=== PATIENT | female | born 1995 | race Caucasian/White ===

== ENCOUNTER 2017-04-14 23:48 | Emergency (ER) | payer SELFPAY ==
--- NOTE | 2017-04-14 23:55 | ER Document Report ---
ED General - General Stated Complaint: POSSIBLE OVERDOSE Time Seen by Provider: 04/14/17 23:50 Notes: Patient is a 21-year-old female without past medical history who presents after attempting suicide. Patient took an unknown quantity of NyQuil solution and tablets as well as cetirizine. She states that this was an attempt to kill herself. Family became concerned after she texted them to state that they needed her to watch her dogs. Denies a history of prior suicide attempts. States she is remorseful that her suicide attempt was unsuccessful. She denies any acute medical concerns. States that the reason for her suicide attempt is "I did not know how to be happy so I wanted to just end it". Patient denies any prior psychiatric diagnoses. - Related Data Allergies/Adverse Reactions: No Known Allergies Allergy (Verified 05/10/13 15:03) Past Medical History - General Information source: Patient - Social History Smoking Status: Never Smoker Frequency of alcohol use: Occasional Drug Abuse: None Lives with: Friend Family History: Reviewed & Not Pertinent Past Surgical History: Reports: Hx Orthopedic Surgery - knee - Immunizations Hx Diphtheria, Pertussis, Tetanus Vaccination: Yes Review of Systems - Review of Systems Notes: Constitutional: Negative for fever. HENT: Negative for sore throat. Eyes: Negative for visual changes. Cardiovascular: Negative for chest pain. Respiratory: Negative for shortness of breath. Gastrointestinal: Negative for abdominal pain, vomiting or diarrhea. Genitourinary: Negative for dysuria. Musculoskeletal: Negative for back pain. Skin: Negative for rash. Neurological: Negative for headaches, weakness or numbness. 10 point ROS negative except as marked above and in HPI. Physical Exam - Vital signs Vitals: BP 121/88 H 04/15/17 00:08 Interpretation: Tachycardic Notes: PHYSICAL EXAMINATION: GENERAL: Appears somewhat somnolent but wakes easily, GCS 15 HEAD: Atraumatic, normocephalic. EYES: Pupils equal round and reactive to light, extraocular movements intact, sclera anicteric, conjunctiva are normal. ENT: nares patent, oropharynx clear without exudates. Moist mucous membranes. NECK: Normal range of motion, supple without lymphadenopathy LUNGS: Breath sounds clear to auscultation bilaterally and equal. No wheezes rales or rhonchi. HEART: Regular rate and rhythm without murmurs ABDOMEN: Soft, nontender, normoactive bowel sounds. No guarding, no rebound. No masses appreciated. EXTREMITIES: Normal range of motion, no pitting or edema. No cyanosis. NEUROLOGICAL: No focal neurological deficits. Moves all extremities spontaneously and on command. PSYCH: Depressed mood and affect, poor eye contact. SKIN: Warm, Dry, normal turgor, no rashes or lesions noted. Course - Re-evaluation Re-evalutation: 04/14/17 23:54 Patient presents with a polysubstance overdose, most concern only apparently up to 8000 mg or more of acetaminophen with an additional unknown ingestion of cetirizine. The Tylenol was mostly in the form of NyQuil. Large concern at this point would be for liver toxicity in the setting of a large ingestion of acetaminophen. Will obtain initial level and then a repeat level 4 hours and then. Patient will placed on ekg monitor, standard psychiatric screening labs will be obtained. An IVC will be filed as patient did have a suicide note , admits that this is a an explicit suicide attempt this is a significant attempt. 04/15/17 02:58 Initial Tylenol level is only 34. Repeat level will be drawn 4 hours from initial. Patient is awake, conversing with family. No distress. - Vital Signs Vital signs: Temp Pulse Resp BP Pulse Ox 99.1 F 108 H 17 119/78 97 04/15/17 00:37 04/15/17 00:37 04/15/17 02:01 04/15/17 02:01 04/15/17 02:01 - Laboratory Result Diagrams: 04/15/17 00:16 04/15/17 00:16 Laboratory results interpreted by me: 04/15/17 04/15/17 00:16 00:16 WBC 14.1 H Absolute Neutrophils 9.8 H Chloride 109 H Carbon Dioxide 19 L Salicylates < 1.0 L Acetaminophen 34 H - EKG Interpretation by Me Additional EKG results interpreted by me: 04/15/17 02:59 Sinus tachycardia. Rate 106. No ST elevations or depressions. QTC is 441. Discharge - Discharge Clinical Impression: Suicide attempt by adequate means Qualifiers: Encounter type: initial encounter Qualified Code(s): X83.8XXA - Intentional self-harm by other specified means, initial encounter Polysubstance overdose Qualifiers: Encounter type: initial encounter Injury intent: intentional self-harm Qualified Code(s): T50.902A - Poisoning by unspecified drugs, medicaments and biological substances, intentional self-harm, initial encounter Condition: Stable Disposition: PSYCH HOSP/UNIT
[2017-04-15 00:29] LABS: ABSOLUTE BASOPHILS # (AUTO) 0.1 10^3/uL (0.0-0.2); ABSOLUTE EOSINOPHILS # (AUTO) 0.1 10^3/uL (0.0-0.6); ABSOLUTE LYMPHOCYTES (AUTO) 3.1 10^3/uL (0.5-4.7); ABSOLUTE MONOCYTES (AUTO) 1.1 10^3/uL (0.1-1.4); ABSOLUTE NEUT (AUTO) 9.8 10^3/uL (1.7-8.2); BASOPHILS % (AUTO) 0.4 % (0-2); EOSINOPHILS % (AUTO) 0.4 % (0-6); HEMATOCRIT 42.6 % (36.0-47.0); HEMOGLOBIN 14.6 g/dL (12.0-15.5); HGB HCT DIFFERENCE 1.2; LYMPHOCYTES % (AUTO) 22.2 % (13-45); MEAN CORPUSCULAR HEMOGLOBIN 31.8 pg (27.0-33.4); MEAN CORPUSCULAR HGB CONC 34.3 g/dL (32.0-36.0); MEAN CORPUSCULAR VOLUME 93 fl (80-97); MONOCYTES % (AUTO) 7.6 % (3-13); RED BLOOD COUNT 4.59 10^6/uL (3.72-5.28); RED CELL DISTRIBUTION WIDTH 12.3 % (11.5-14.0); SEGMENTED NEUTROPHILS % (AUTO) 69.4 % (42-78); WHITE BLOOD COUNT 14.1 10^3/uL (4.0-10.5)
[2017-04-15 00:40] LABS: APPEARANCE,URINE CLEAR; BILIRUBIN,URINE NEGATIVE (NEGATIVE); GLUCOSE, URINE NEGATIVE (NEGATIVE); KETONES,URINE NEGATIVE (NEGATIVE); LEUKOCYTE ESTERASE,URINE NEGATIVE (NEGATIVE); NITRITE,URINE NEGATIVE (NEGATIVE); PROTEIN,URINE NEGATIVE (NEGATIVE); URINE SPECIFIC GRAVITY 1.002; UROBILINOGEN,URINE NEGATIVE mg/dL (<2.0)
[2017-04-15 00:43] LABS: ALANINE AMINOTRANSFERASE 21 U/L (9-52); ALCOHOL 41 mg/dL (NONE DETECTED); ALKALINE PHOSPHATASE 59 U/L (38-126); ANION GAP 16 (5-19); ASPARTATE AMINO TRANSFERASE 20 U/L (14-36); BILIRUBIN,DIRECT 0.4 mg/dL (0.0-0.4); BILIRUBIN,TOTAL 0.7 mg/dL (0.2-1.3); BLOOD UREA NITROGEN 8 mg/dL (7-20); CALCIUM 10.2 mg/dL (8.4-10.2); CARBON DIOXIDE 19 mmol/L (22-30); CHLORIDE 109 mmol/L (98-107); CREATININE RESULT 0.77 mg/dL (0.52-1.25); GLUCOSE 108 mg/dL (75-110); POTASSIUM 3.7 mmol/L (3.6-5.0); SODIUM 144.4 mmol/L (137-145)
[2017-04-15 02:58] LABS: URINE BARBITURATES SCREEN NEGATIVE; URINE METHADONE SCREEN NEGATIVE; URINE OPIATES LOW NEGATIVE; URINE PHENCYCLIDINE SCREEN NEGATIVE
--- NOTE | 2017-04-15 09:22 | ER Document Report ---
Doctor's Note Notes: 04/15/17 09:21 I have evaluated this pt. this am and she has no c/o. She feels all of her needs are being met and her physical exam is normal. She is awaiting disposition per mental health.
--- NOTE | 2017-04-15 13:18 | ER Document Report ---
ED Psych Disorder / Suicide - General Chief Complaint: Psych Problem Stated Complaint: POSSIBLE OVERDOSE Time Seen by Provider: 04/14/17 23:50 Information source: Patient, Parent - HPI Patient complains to provider of: Overdose - Zyrtec Onset: Just prior to arrival Onset was: Sudden Suicide Risk Factors: Depressed, Frightened friends/family Situational problems related to: Significant other - boyfriend recently abandoned her and moved to [place] with no notice/communication Normal mood: No - Depressed Associated symptoms: Depressed Recently seen / treated by doctor: No Notes: Patient is a 21 year old female who presented overnight with complaints of suicide attempt via overdose. Patient reportedly ingested 20+ Zyretec tabs. Patient this morning is tearful, which she states is due to remorse. Patient states she does not want to . Patient states she felt overwhelmed yesterday and did disclose to her mother that she needed to find a counselor. Patient denies feeling this way in the past. Patient states she and her boyfriend recently signed a lease for a house, and last week while she was at work, he packed all his belongings and relocated to [place]. She states she had no notice and returned to find he and his belongings gone. She states for the fist day o two they were texting and he said his grandfather was sick and he had to go to be with him, but he has since stopped responding. She states she cannot afford the home on her own, and felt completely overwhelmed. Patient states she realizes now that she needs to go to counseling, but also to verbally tell her family and friends how she feels. Patient states she had not fully disclosed how hopeless she felt to her parents, but has since done so. Patient provides verbal consent to speak with her parents who are bedside. Mother and father collectively report they have talked with the patient, and patient will be returning to their home temporarily so they may support her and get her engaged in therapy, etc. 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 Mother states she is not concerns the patient will attempt suicide again because she has come to realize how many people care for her, and how much support she does have if she would reach out when she needs it. Mother states she, her other adult children, and patient's cousin will be taking turns being with the patient and driving her to and from appointments. Mother denies any familial history of MH or suicides. Patient is A&O. Mood is euthymic with normal affect. Patient endorses attempting to overdose but denies wanting to at this time. Patient denies A/ V H; delusions not noted. Thought processes were organized. Conversational speech was soft for prosody. Intellectual abilities were estimated within average range. Attention and focus were fair. Insight, judgment, and impulse control were poor. Unspecified Depressive Disorder Patient is psychiatrically cleared for discharge. Patient is recommended for rescind IVC and discharge to her parent's to follow the plan of care identified , to include staying with her parents, allowing them to monitor her and assist her with follow up, and engaging in outpatient therapy beginning Tuesday 04/17 at [facility]. Patient has numerous supports, no prior episodes, does not want to commit suicide, and is demonstrating remorse. Patient and family are in agreement with plan of care. I consulted with Dr. Hernandez in regards to the care and management of this patient. - Related Data Allergies/Adverse Reactions: No Known Allergies Allergy (Verified 05/10/13 15:03) Past Medical History - General Information source: Patient - Social History Smoking Status: Never Smoker Frequency of alcohol use: Occasional Drug Abuse: None Lives with: Friend Family History: Reviewed & Not Pertinent Patient has suicidal ideation: No Patient has homicidal ideation: No Past Surgical History: Reports: Hx Orthopedic Surgery - knee - Immunizations Hx Diphtheria, Pertussis, Tetanus Vaccination: Yes Physical Exam - Vital signs Vitals: BP 121/88 H 04/15/17 00:08 Course - Vital Signs Vital signs: Temp Pulse Resp BP Pulse Ox 98.2 F 108 H 18 127/85 H 100 04/15/17 08:57 04/15/17 00:37 04/15/17 08:57 04/15/17 08:57 04/15/17 08:57 - Laboratory Result Diagrams: 04/15/17 00:16 04/15/17 00:16 Laboratory results interpreted by me: 04/15/17 04/15/17 04/15/17 00:16 00:16 04:00 WBC 14.1 H Absolute Neutrophils 9.8 H Chloride 109 H Carbon Dioxide 19 L Salicylates < 1.0 L Acetaminophen 34 H 37 H Discharge - Discharge Clinical Impression: Suicide attempt by adequate means Qualifiers: Encounter type: initial encounter Qualified Code(s): X83.8XXA - Intentional self-harm by other specified means, initial encounter Polysubstance overdose Qualifiers: Encounter type: initial encounter Injury intent: intentional self-harm Qualified Code(s): T50.902A - Poisoning by unspecified drugs, medicaments and biological substances, intentional self-harm, initial encounter Condition: Stable Disposition: HOME, SELF-CARE Additional Instructions: Suicidal Ideation Suicidal ideation is a common medical term for thoughts about suicide, which may be as detailed as a formulated plan, without the suicidal act itself. Although most people who undergo suicidal ideation do not commit suicide, some go on to make suicide attempts. The range of suicidal ideation varies greatly from fleeting to detailed planning, role playing, and unsuccessful attempts. Depression Your evaluation reveals that you have mental depression. While symptoms may be vague, they often include disturbance of sleep, fatigue, loss of appetite , and general loss of interest in life. While depression may be a side effect of drugs, or a reaction to a major change in your life, many cases have no known cause. If depression is acute, and related to a major loss in your life, you can expect it to clear completely with time. If you have been depressed a long time , are prone to repeated bouts of depression or low mood, or have been thinking of suicide, get help. Depression can be treated with anti-depressant medication and counselling. Long-term depression will often take a few weeks to clear, even with appropriate medication. Follow-up care is important. Contact your physician, the hospital emergency center, crisis line, or your counsellor if you are losing control or having self-destructive thoughts. While thoughts about suicide are common, most people do not carry out serious actions to commit suicide. Engaging in professional mental health services is important to successfully managing depression. Please follow up with Kim Copeland, Saturday at 1pm. Referrals: [facility] [Provider Group] - 04/17/17 1:00 pm (They ask you bring your insurrance information and NCDL)
[2017-04-15 13:49] VITALS: BP 123/76
--- NOTE | 2017-04-15 13:56 | EKG REPORT ---
SEVERITY:- OTHERWISE NORMAL ECG - SINUS TACHYCARDIA : Confirmed by: Allison Dominguez MD 15-Apr-2017 13:55:56
== END 2017-04-15 13:35 | disposition home or self-care (01) ==
LOC: ER 23:48
DX: T50.902A Poisoning by unspecified drugs, medicaments and biological substances, intentional self-harm, initial encounter (principal); X83.8XXA Intentional self-harm by other specified means, initial encounter
CPT/HCPCS: 36415; 80053; 80307; 81001; 84703; 85025; 93005; 93010; 99285

== ENCOUNTER 2017-05-17 09:02 | Emergency (ER) | payer OTHER, BC ==
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
[2017-05-17 11:06] LABS: ABSOLUTE BASOPHILS # (AUTO) 0.1 10^3/uL (0.0-0.2); ABSOLUTE EOSINOPHILS # (AUTO) 0.1 10^3/uL (0.0-0.6); ABSOLUTE LYMPHOCYTES (AUTO) 1.7 10^3/uL (0.5-4.7); BASOPHILS % (AUTO) 0.4 % (0-2); EOSINOPHILS % (AUTO) 0.5 % (0-6); HEMATOCRIT 41.5 % (36.0-47.0); HEMOGLOBIN 14.4 g/dL (12.0-15.5); HGB HCT DIFFERENCE 1.7; MEAN CORPUSCULAR HEMOGLOBIN 32.7 pg (27.0-33.4); MEAN CORPUSCULAR HGB CONC 34.8 g/dL (32.0-36.0); MEAN CORPUSCULAR VOLUME 94 fl (80-97); MONOCYTES % (AUTO) 7.8 % (3-13); RED BLOOD COUNT 4.42 10^6/uL (3.72-5.28); RED CELL DISTRIBUTION WIDTH 12.8 % (11.5-14.0); SEGMENTED NEUTROPHILS % (AUTO) 78.3 % (42-78); WHITE BLOOD COUNT 12.8 10^3/uL (4.0-10.5)
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
[2017-05-17 11:27] LABS: ALANINE AMINOTRANSFERASE 40 U/L (9-52); ALBUMIN 4.5 g/dL (3.5-5.0); ALKALINE PHOSPHATASE 71 U/L (38-126); ANION GAP 12 (5-19); ASPARTATE AMINO TRANSFERASE 30 U/L (14-36); BILIRUBIN,DIRECT 0.3 mg/dL (0.0-0.4); BILIRUBIN,TOTAL 0.9 mg/dL (0.2-1.3); BLOOD UREA NITROGEN 10 mg/dL (7-20); CALCIUM 9.8 mg/dL (8.4-10.2); CARBON DIOXIDE 26 mmol/L (22-30); CHLORIDE 104 mmol/L (98-107); CREATININE RESULT 0.72 mg/dL (0.52-1.25); GLUCOSE 70 mg/dL (75-110); POTASSIUM 3.7 mmol/L (3.6-5.0); SODIUM 141.7 mmol/L (137-145); TOTAL PROTEIN 7.5 g/dL (6.3-8.2)
[2017-05-17] MEDS ORDERED: LIDOCAINE 5% (700 MG) TRANSDERMAL ADH..PATCH TP ONE (12:17)
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
[2017-05-17 12:48] VITALS: BP 125/75
--- NOTE | 2017-05-17 23:55 | EKG REPORT ---
SEVERITY:- OTHERWISE NORMAL ECG - SINUS ARRHYTHMIA, RATE 59-89 : Confirmed by: Vicki Hogan 17-May-2017 23:54:33
== END 2017-05-17 12:48 | disposition home or self-care (01) ==
LOC: ER 09:02
DX: S06.0X0A Concussion without loss of consciousness, initial encounter (principal); M79.1 Myalgia; V43.52XA Car driver injured in collision with other type car in traffic accident, initial encounter; R42 Dizziness and giddiness; H53.8 Other visual disturbances; R07.1 Chest pain on breathing; M25.512 Pain in left shoulder; M54.2 Cervicalgia; R10.32 Left lower quadrant pain
CPT/HCPCS: 93005; 99284; 36415; 84703; 85025; 80053; 72050; 71020; 93010; L0120

== ENCOUNTER 2017-08-02 21:02 | Emergency (ER) | payer BC, OTHER ==
[2017-08-02] MEDS ORDERED: DIPH/PERTUSS(ACELL)/TETANUS VAC/PF 0.5 ML SYR (>=10YO) IM ONE (23:05)
[2017-08-02] MEDS ORDERED: AMOXICILLIN TRIHYD 250 MG CAPSULE PO ONE (23:08)
[2017-08-02] MEDS ORDERED: AMOXICILLIN TR/POT CLAVULANATE 500-125 MG TAB PO ONE (23:08)
[2017-08-02] MEDS ORDERED: OXYCODONE-ACETAMINOPHEN 5-325 MG TABLET PO ONE (23:08)
--- NOTE | 2017-08-02 23:09 | ER Document Report ---
HPI - HPI Patient complains to provider of: Dog bite Onset: Just prior to arrival Onset/Duration: Sudden Quality of pain: Sharp Pain Level: 2 Context: Patient states that her 2 dogs were fighting and she tried to separate the dogs. Patient states that she was bit to her left second and third finger. Patient is right-hand dominant. Associated Symptoms: Other - dog bite. denies: Fever Exacerbated by: Movement Relieved by: Denies Similar symptoms previously: No Recently seen / treated by doctor: No - ROS ROS below otherwise negative: Yes Systems Reviewed and Negative: Yes All other systems reviewed and negative - GASTROINTESTINAL Gastrointestinal: DENIES: Nausea, Patient vomiting - MUSCULOSKELETAL Musculoskeletal: REPORTS: Extremity pain - DERM Skin Color: Normal Skin Problems: Laceration, Puncture Wound Past Medical History - General Information source: Patient - Social History Smoking Status: Never Smoker Chew tobacco use (# tins/day): No Frequency of alcohol use: Social Drug Abuse: None 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 IN LAST 30 DAYS: No - HEENT HEENT: Atraumatic, Normocephalic - NECK Neck: Normal Inspection - RESPIRATORY Respiratory: No Respiratory Distress O2 Sat by Pulse Oximetry: 100 - CARDIOVASCULAR Pulses: Normal: Radial - MUSCULOSKELETAL/EXTREMETIES Musculoskeletal/Extremeties: MAEW, Tender - left 2, 3rd finger tenderness, No Edema - NEURO Level of Consciousness: Awake, Alert, Appropriate Motor/Sensory: No Motor Deficit Notes: No tendon deficit - DERM Integumentary: Warm, Dry, Laceration - Along radial aspect of right second finger, multiple puncture wounds to right second and third fingers. Course - Re-evaluation Re-evalutation: 08/03/17 01:06 Wound was irrigated with warm soapy water prior to cleansing with saline and surgical scrub - Vital Signs Vital signs: Temp Pulse Resp BP Pulse Ox 98.2 F 88 16 132/78 H 100 08/02/17 21:45 08/02/17 21:45 08/02/17 21:45 08/02/17 21:45 08/02/17 21:45 - Diagnostic Test Radiology reviewed: Reports reviewed Procedures - Laceration/Wound Repair Left 2nd digit Wound length (cm): 3 Wound's Depth, Shape: Linear, Irregular Anesthetic type: 1% Lidocaine Wound explored: Clean Irrigated w/ Saline (mLs): 100 Wound Repaired With: Sutures Suture Size/Type: 5:0, Nylon Number of Sutures: 1 Layer Closure?: No Post-procedure wound care: Sterile dressing applied Post-procedure NV exam normal: Yes Complications: No Notes: 08/03/17 01:07 A single stitch was placed to help approximate wound edges so they may heal by secondary intention Hands back picture: 1 - laceration Discharge - Discharge Clinical Impression: Puncture wound Dog bite Qualifiers: Encounter type: initial encounter Qualified Code(s): W54.0XXA - Bitten by dog, initial encounter Hand laceration Qualifiers: Encounter type: initial encounter Foreign body presence: without foreign body Laterality: left Qualified Code(s): S61.412A - Laceration without foreign body of left hand, initial encounter Condition: Stable Disposition: HOME, SELF-CARE Instructions: Animal Bites ([facility]), Oral Narcotic Medication ([facility]), Prophylactic Antibiotic ([facility]), Soap Cleansing ([facility]), Tetanus Immunization Given ([facility]) Additional Instructions: Return immediately for any new or worsening symptoms Return in 2 days for a wound recheck. Return sooner for any concerning symptoms , fever, redness, drainage, or any troubles. Follow-up with orthopedic hand specialist for any continued problems Prescriptions: Amox Tr/Potassium Clavulanate [Augmentin 875-125 Tablet] 1 tab PO BID 7 Days # 14 tablet Oxycodone HCl/Acetaminophen [Percocet 5-325 mg Tablet] 1 tab PO ASDIR PRN #10 tablet PRN Reason: Forms: Return to Work Referrals: PRATIK HUMPHREYS FNP-C [Primary Care Provider] - Follow up as needed ELLIOTT CORNELIUS, [ACTIVE STAFF] - Follow up as needed
--- NOTE | 2017-08-02 23:42 | RADIOLOGY REPORT (SQ) ---
EXAM DESCRIPTION: HAND LEFT 3 VIEWS COMPLETED DATE/TIME: 08/02/2017 11:19 pm REASON FOR STUDY: dog bite COMPARISON: None. EXAM PARAMETERS: NUMBER OF VIEWS: Three views. TECHNIQUE: AP, lateral and oblique radiographic images acquired of the left hand. LIMITATIONS: None. FINDINGS: MINERALIZATION: Normal. BONES: No acute fracture or dislocation. No worrisome bone lesions. JOINTS: No effusions. SOFT TISSUES: No soft tissue swelling. No foreign body. Known soft tissue injury. OTHER: No other significant finding. IMPRESSION: NEGATIVE STUDY OF THE LEFT HAND. NO RADIOGRAPHIC EVIDENCE OF ACUTE INJURY. TECHNICAL DOCUMENTATION: JOB ID: [id number] [employer]- All Rights Reserved
[2017-08-03] MEDS ORDERED: LIDOCAINE 1% INJ-PF (10 MG/ML) 30 ML SDV INJ ONE (00:02)
[2017-08-03 01:30] VITALS: BP 100/87
== END 2017-08-03 01:21 | disposition home or self-care (01) ==
LOC: ER 21:02
PROC: 0HQGXZZ Repair Left Hand Skin, External Approach (ICD-10-PCS; principal; 2017-08-02)
DX: S61.251A Open bite of left index finger without damage to nail, initial encounter (principal); S61.253A Open bite of left middle finger without damage to nail, initial encounter; W54.0XXA Bitten by dog, initial encounter
CPT/HCPCS: 99283; 90471; 73130; 90715; 12002; J3490 ×2

== ENCOUNTER 2017-08-05 20:19 | Emergency (ER) | payer BC ==
--- NOTE | 2017-08-05 20:47 | ER Document Report ---
HPI - HPI Pain Level: 3 Notes: Patient is a 21-year-old female who presents the ED for a wound recheck status post one suture placement from a dog bite to her left index finger about 2 days ago. Patient states that her wound appears to be healing well without any redness, abscess, purulent discharge, or streaks. Patient states that she is taking her antibiotic as directed. She has no other concerns or complaints at this time. Denies any other significant medical history. Denies any headache, fever, chest pain, palpitations, syncope, cough, shortness of breath, wheeze, dyspnea, abdominal pain, nausea/vomiting/diarrhea, dysuria, hematuria, numbness/ tingling, muscle paralysis/weakness, or rash. - ROS Notes: REVIEW OF SYSTEMS: CONSTITUTIONAL : Denies fever, chills, or sweats. Denies recent illness. EENT: Denies eye, ear, throat, or mouth pain or symptoms. Denies nasal or sinus congestion or discharge. Denies throat, tongue, or mouth swelling or difficulty swallowing. CARDIOVASCULAR: Denies chest pain. Denies palpitations or racing or irregular heart beat. Denies ankle edema. RESPIRATORY: Denies cough, cold, or chest congestion. Denies shortness of breath, difficulty breathing, or wheezing. GASTROINTESTINAL: Denies abdominal pain or distention. Denies nausea, vomiting , or diarrhea. Denies blood in vomitus, stools, or per rectum. Denies black, tarry stools. Denies constipation. GENITOURINARY: Denies difficulty urinating, painful urination, burning, frequency, blood in urine, or discharge. MUSCULOSKELETAL: see hpi SKIN: see hpi NEUROLOGICAL: Denies confusion or altered mental status. Denies passing out or loss of consciousness. Denies dizziness or lightheadedness. Denies headache. Denies weakness or paralysis or loss of use of either side. Denies problems with gait or speech. Denies sensory loss, numbness, or tingling. ALL OTHER SYSTEMS REVIEWED AND NEGATIVE. Dictation was performed using [employer] voice recognition software - CARDIOVASCULAR Cardiovascular: DENIES: Chest pain - REPRODUCTIVE LMP: 08/03 - DERM Skin Color: Normal, [place] Past Medical History - Social History Smoking Status: Never Smoker Chew tobacco use (# tins/day): No Frequency of alcohol use: Rare Drug Abuse: None Family History: Reviewed & Not Pertinent Patient has suicidal ideation: No Patient has homicidal ideation: No Renal/ Medical History: Denies: Hx Peritoneal Dialysis Past Surgical History: Reports: Hx Oral Surgery - wisdom teeth, Hx Orthopedic Surgery - knee - Immunizations Hx Diphtheria, Pertussis, Tetanus Vaccination: Yes Vertical Provider Document - CONSTITUTIONAL Agree With Documented VS: Yes Notes: PHYSICAL EXAMINATION: GENERAL: Well-appearing, well-nourished and in no acute distress. Musculoskeletal: Lt hand/fingers: FROM to passive/active. Strength 5+/5. Extremities: No cyanosis, clubbing, or edema b/l. Peripheral pulses 2+. Capillary refill less than 3 seconds. NEUROLOGICAL: Normal speech, normal gait. Normal sensory, motor exams PSYCH: Normal mood, normal affect. SKIN: healing dog bite(s) and lac to the left index finger. [address] No wound dehiscence, erythema, induration, abscess, streaks, or discharge. Non-tender. - INFECTION CONTROL TRAVEL OUTSIDE OF THE [place] IN LAST 30 DAYS: No Course - Re-evaluation Re-evalutation: 08/05/17 20:44 Patient is an afebrile, well-hydrated, 21-year-old female who presents the ED for a wound recheck status post suture placement for dog bite to left index finger. Vitals are stable. PE is otherwise unremarkable for any neurovascular compromise, obvious tendon/ligament rupture, obvious fracture or dislocation. There is no obvious wound dehiscence or infection. Patient to continue antibiotics as directed. Conservative measures otherwise for symptoms. Her suture will need removed in 10-12 days from when it was placed. Patient expressed that she will be going to her PCM for this. Return to the ED with any worsening/concerning symptoms otherwise as reviewed in discharge. Patient is in agreement. Discharge - Discharge Clinical Impression: Encounter for wound re-check Condition: Stable Disposition: HOME, SELF-CARE Instructions: Animal Bites ([facility]) Additional Instructions: Keep the skin clean Wash with soap and water Triple antibiotic if any open wound Monitor for any development of infection or wound dehiscence Recheck with your PCM 10-12 days from one suture was placed for suture removal Continue antibiotics as directed Return to the ED with any worsening symptoms and/or development of fever, headache, chest pain, palpitations, syncope, shortness of breath, trouble breathing, abdominal pain, n/v/d, muscle weakness/paralysis, numbness/tingling, abscess, red streaks, purulent discharge, or other worsening symptoms that are concerning to you. Referrals: [facility] [Provider Group] - Follow up as needed
== END 2017-08-05 20:53 | disposition home or self-care (01) ==
LOC: ER 20:19
DX: S61.251D Open bite of left index finger without damage to nail, subsequent encounter (principal); W54.0XXD Bitten by dog, subsequent encounter
CPT/HCPCS: 99281

== ENCOUNTER 2017-08-13 19:52 | Emergency (ER) | payer BC ==
--- NOTE | 2017-08-13 20:57 | ER Document Report ---
HPI - HPI Patient complains to provider of: Patient presents for suture removal from the left index finger Pain Level: 1 Past Medical History - General Information source: Patient - Social History Smoking Status: Never Smoker Chew tobacco use (# tins/day): No Frequency of alcohol use: None Drug Abuse: None Family History: Reviewed & Not Pertinent Patient has suicidal ideation: No Patient has homicidal ideation: No Renal/ Medical History: Denies: Hx Peritoneal Dialysis Past Surgical History: Reports: Hx Oral Surgery - wisdom teeth, Hx Orthopedic Surgery - knee - Immunizations Hx Diphtheria, Pertussis, Tetanus Vaccination: Yes Vertical Provider Document - CONSTITUTIONAL Agree With Documented VS: Yes Exam Limitations: No Limitations - INFECTION CONTROL TRAVEL OUTSIDE OF THE [place] IN LAST 30 DAYS: No - RESPIRATORY O2 Sat by Pulse Oximetry: 99 Course - Re-evaluation Re-evalutation: 08/13/17 20:54 Patient presents with the need of a suture removal from the left index finger. This was removed without difficulty and patient will be discharged. There is no signs of infection and the wound repair appears successful. - Vital Signs Vital signs: Temp Pulse Resp BP Pulse Ox 98 F 81 16 105/70 99 08/13/17 20:06 08/13/17 20:06 08/13/17 20:06 08/13/17 20:06 08/13/17 20:06 Discharge - Discharge Clinical Impression: Visit for suture removal Condition: Good Disposition: HOME, SELF-CARE
[2017-08-13 21:04] VITALS: BP 110/70
== END 2017-08-13 21:03 | disposition home or self-care (01) ==
LOC: ER 19:52
DX: Z48.02 Encounter for removal of sutures (principal)

== ENCOUNTER 2017-10-12 15:51 | Emergency (ER) | payer BC, OTHER ==
--- NOTE | 2017-10-12 17:23 | ER Document Report ---
ED Medical Screen (RME) - General Chief Complaint: Vaginal Bleeding Stated Complaint: VAGINAL BLEEDING Time Seen by Provider: 10/12/17 17:18 Mode of Arrival: Ambulatory Information source: Patient Notes: 22 yo female at the [facility] today, had some dark brown blood, no clots, no dysuria. Vomited last night. No diarrhea. 6 weeks . . Now not as much dark brown blood. LMP 2017. TRAVEL OUTSIDE OF THE [place] IN LAST 30 DAYS: No - Related Data Allergies/Adverse Reactions: ciprofloxacin [From Ciprodex] Allergy (Verified 08/02/17 21:44) dexamethasone [From Ciprodex] Allergy (Verified 08/02/17 21:44) Past Medical History - General Last Menstrual Period: 08/30/17 - Social History Chew tobacco use (# tins/day): No Frequency of alcohol use: Social Drug Abuse: None Renal/ Medical History: Denies: Hx Peritoneal Dialysis Past Surgical History: Reports: Hx Oral Surgery - wisdom teeth, Hx Orthopedic Surgery - knee - Immunizations Hx Diphtheria, Pertussis, Tetanus Vaccination: Yes History of Influenza Vaccine for 06/2017 - 11/2017 Season: No Physical Exam - Vital signs Vitals: Temp Pulse Resp BP Pulse Ox 97.8 F 93 14 141/70 H 100 10/12/17 15:56 10/12/17 15:56 10/12/17 15:56 10/12/17 15:56 10/12/17 15:56 Course - Vital Signs Vital signs: Temp Pulse Resp BP Pulse Ox 97.8 F 93 16 141/70 H 100 10/12/17 15:56 10/12/17 15:56 10/12/17 17:03 10/12/17 15:56 10/12/17 15:56
[2017-10-12 18:35] LABS: AMORPHOUS SEDIMENT,URINE TRACE /HPF; APPEARANCE,URINE SLIGHTLY-CLOUDY; BILIRUBIN,URINE NEGATIVE (NEGATIVE); COLOR,URINE YELLOW; GLUCOSE, URINE NEGATIVE (NEGATIVE); KETONES,URINE 20 mg/dL (NEGATIVE); LEUKOCYTE ESTERASE,URINE NEGATIVE (NEGATIVE); NITRITE,URINE NEGATIVE (NEGATIVE); PROTEIN,URINE NEGATIVE (NEGATIVE); URINE SPECIFIC GRAVITY 1.024; UROBILINOGEN,URINE NEGATIVE mg/dL (<2.0)
[2017-10-12 19:03] LABS: ABSOLUTE LYMPHOCYTES (AUTO) 2.3 10^3/uL (0.5-4.7); ABSOLUTE MONOCYTES (AUTO) 0.6 10^3/uL (0.1-1.4); ABSOLUTE NEUT (AUTO) 9.6 10^3/uL (1.7-8.2); BASOPHILS % (AUTO) 0.3 % (0-2); EOSINOPHILS % (AUTO) 0.2 % (0-6); HEMATOCRIT 42.7 % (36.0-47.0); HEMOGLOBIN 14.7 g/dL (12.0-15.5); LYMPHOCYTES % (AUTO) 18.3 % (13-45); MEAN CORPUSCULAR HEMOGLOBIN 31.4 pg (27.0-33.4); MEAN CORPUSCULAR HGB CONC 34.4 g/dL (32.0-36.0); MEAN CORPUSCULAR VOLUME 91 fl (80-97); MONOCYTES % (AUTO) 4.8 % (3-13); PLATELET COUNT 345 10^3/uL (150-450); RED BLOOD COUNT 4.68 10^6/uL (3.72-5.28); RED CELL DISTRIBUTION WIDTH 12.2 % (11.5-14.0); SEGMENTED NEUTROPHILS % (AUTO) 76.4 % (42-78); TOTAL CELLS COUNTED % (AUTO) 100 %; WHITE BLOOD COUNT 12.6 10^3/uL (4.0-10.5)
--- NOTE | 2017-10-12 19:13 | RADIOLOGY REPORT (SQ) ---
EXAM DESCRIPTION: U/S OB TRANSVAG W/DOPPLER COMPLETED DATE/TIME: 10/12/2017 6:30 pm REASON FOR STUDY: spotting 6 weeks COMPARISON: None. TECHNIQUE: Transvaginal static and realtime grayscale images acquired of the pelvis. Additional jannie cted spectral and color Doppler images recorded. All images stored on PACs. bHCG: Not available. LIMITATIONS: None. FINDINGS: FETUS: Living intrauterine . EGA: 6 weeks, 1 day GRADY: 06/06/2018 FHR: 109 beats per minute. SUBCHORIONIC BLEED: No SIZE OF BLEED: Not applicable. UTERUS: No masses. No anomalies. CERVICAL LENGTH: 3.7 cm Closed. RIGHT ADNEXA: Normal ovary with normal vascular flow. No adnexal free fluid. No adnexal masses. LEFT ADNEXA: Normal ovary with normal vascular flow. No adnexal free fluid. No adnexal masses. FREE FLUID: None. OTHER: No other significant finding. IMPRESSION: LIVING INTRAUTERINE . EGA 6 weeks, 1 day Trimester of : First - 0 to 13 weeks. TECHNICAL DOCUMENTATION: JOB ID: [id number] [employer]- All Rights Reserved
[2017-10-12 20:14] VITALS: BP 115/63
--- NOTE | 2017-10-12 20:24 | ER Document Report ---
ED GI/ - General Chief Complaint: Vaginal Bleeding Stated Complaint: VAGINAL BLEEDING Time Seen by Provider: 10/12/17 17:18 Mode of Arrival: Ambulatory Notes: Patient is a 22-year-old female, at about 5-6 weeks gestation, the comes emergency department for chief complaint of vaginal bleeding. She states that she had small amount of brownish reddish bleeding earlier tonight, she states that she rechecked recently and currently has no bleeding. She denies any abdominal pain, pelvic pain, flank pain, fever, nausea or vomiting, vaginal discharge, or trauma. TRAVEL OUTSIDE OF THE [place] IN LAST 30 DAYS: No - Related Data Allergies/Adverse Reactions: ciprofloxacin [From Ciprodex] Allergy (Verified 08/02/17 21:44) dexamethasone [From Ciprodex] Allergy (Verified 08/02/17 21:44) Past Medical History - General Information source: Patient Last Menstrual Period: 08/30/17 - Social History Smoking Status: Never Smoker Chew tobacco use (# tins/day): No Frequency of alcohol use: Social Drug Abuse: None Lives with: Family Family History: Reviewed & Not Pertinent Patient has suicidal ideation: No Patient has homicidal ideation: No - Medical History Medical History: Negative Renal/ Medical History: Denies: Hx Peritoneal Dialysis Past Surgical History: Reports: Hx Oral Surgery - wisdom teeth, Hx Orthopedic Surgery - knee - Immunizations Hx Diphtheria, Pertussis, Tetanus Vaccination: Yes Review of Systems - Review of Systems Constitutional: No symptoms reported EENT: No symptoms reported Cardiovascular: No symptoms reported Respiratory: No symptoms reported Gastrointestinal: See HPI Genitourinary: See HPI Female Genitourinary: See HPI Musculoskeletal: No symptoms reported Skin: No symptoms reported Hematologic/Lymphatic: No symptoms reported Neurological/Psychological: No symptoms reported Physical Exam - Vital signs Vitals: Temp Pulse Resp BP Pulse Ox 97.8 F 93 14 141/70 H 100 10/12/17 15:56 10/12/17 15:56 10/12/17 15:56 10/12/17 15:56 10/12/17 15:56 Interpretation: Normal - General General appearance: Appears well, Alert - HEENT Head: Normocephalic, Atraumatic Eyes: Normal Pupils: PERRL - Respiratory Respiratory status: No respiratory distress Chest status: Nontender Breath sounds: Normal Chest palpation: Normal - Cardiovascular Rhythm: Regular Heart sounds: Normal auscultation Murmur: No - Abdominal Inspection: Normal Distension: No distension Bowel sounds: Normal Tenderness: Nontender Organomegaly: No organomegaly - Back Back: Normal, Nontender - Extremities General upper extremity: Normal inspection, Nontender, Normal color, Normal ROM , Normal temperature General lower extremity: Normal inspection, Nontender, Normal color, Normal ROM , Normal temperature, Normal weight bearing. No: Anusha's sign - Neurological Neuro grossly intact: Yes Cognition: Normal Orientation: AAOx4 Coats Coma Scale Eye Opening: Spontaneous Coats Coma Scale Verbal: Oriented Coats Coma Scale Motor: Obeys Commands Coats Coma Scale Total: 15 Speech: Normal Motor strength normal: LUE, RUE, LLE, RLE Sensory: Normal - Psychological Associated symptoms: Normal affect, Normal mood - Skin Skin Temperature: Warm Skin Moisture: Dry Skin Color: Normal Course - Re-evaluation Re-evalutation: Patient asymptomatic on my evaluation, well-appearing, soft abdomen/pelvis, unremarkable vital signs. Laboratory workup with no concerning findings. RhoGam is not indicated. Mild leukocytosis but no fever, no evidence of urinary tract infection, very low suspicion of acute abdomen based on exam. Ultrasound with no acute abnormalities, shows living IUP. Patient provided with copy of her report, patient is to have close [employer] follow-up, discussed return precautions in detail, discussed workup details, patient states satisfaction and agreement. Stable at time of discharge. - Vital Signs Vital signs: Temp Pulse Resp BP Pulse Ox 98.7 F 102 H 18 115/63 98 10/12/17 20:12 10/12/17 20:12 10/12/17 20:12 10/12/17 20:12 10/12/17 20:12 - Laboratory Result Diagrams: 10/12/17 18:30 Laboratory results interpreted by me: 10/12/17 10/12/17 10/12/17 17:15 18:30 18:30 WBC 12.6 H Absolute Neutrophils 9.6 H Beta HCG, Quant 52204.00 H Urine Ketones 20 H Urine Blood LARGE H Discharge - Discharge Clinical Impression: Vaginal bleeding in patient at less than 20 weeks gestation Condition: Stable Disposition: HOME, SELF-CARE Additional Instructions: Your ultrasound shows a living gestation in the uterus with no apparent abnormality. Your workup shows no abnormality. Your blood type is O+. Please perform precautions for prevention of additional bleeding including no jumping, running, heavy lifting, sexual intercourse, or significant exertion until cleared to do so by [employer]. Follow close with them in the office especially if bleeding continues. Return if you worsen including severe bleeding, sharp pain, passing out, fever, or any other concerning symptoms.
== END 2017-10-12 20:30 | disposition home or self-care (01) ==
LOC: ER 15:51
DX: O20.9 Hemorrhage in early pregnancy, unspecified (principal); Z3A.01 Less than 8 weeks gestation of pregnancy
CPT/HCPCS: 36415; 76817; 81001; 84702; 85025; 86900; 86901; 93976; 99284

== ENCOUNTER 2017-11-25 10:48 | Emergency (ER) | payer BC, OTHER ==
[2017-11-25] MEDS ORDERED: NORMAL SALINE 1000 ML 1,000 ML IV ONE (11:23)
[2017-11-25] MEDS ORDERED: METOCLOPRAMIDE HCL INJ/PF 10 MG/2 ML SDV IV ONE (11:23)
--- NOTE | 2017-11-25 11:24 | ER Document Report ---
ED Medical Screen (RME) - General Chief Complaint: Vomiting Stated Complaint: VOMITING Time Seen by Provider: 11/25/17 11:23 Notes: sent from ob office with hyperemesis TRAVEL OUTSIDE OF THE [place] IN LAST 30 DAYS: No - Related Data Allergies/Adverse Reactions: ciprofloxacin [From Ciprodex] Allergy (Verified 08/02/17 21:44) dexamethasone [From Ciprodex] Allergy (Verified 08/02/17 21:44) Past Medical History - Social History Chew tobacco use (# tins/day): No Frequency of alcohol use: None Drug Abuse: None Renal/ Medical History: Denies: Hx Peritoneal Dialysis Past Surgical History: Reports: Hx Oral Surgery - wisdom teeth, Hx Orthopedic Surgery - knee - Immunizations Hx Diphtheria, Pertussis, Tetanus Vaccination: Yes History of Influenza Vaccine for 06/2017 - 11/2017 Season: No Physical Exam - Vital signs Vitals: Temp Pulse Resp BP Pulse Ox 98.2 F 102 H 16 110/73 99 11/25/17 11:01 11/25/17 11:01 11/25/17 11:01 11/25/17 11:01 11/25/17 11:01 Course - Vital Signs Vital signs: Temp Pulse Resp BP Pulse Ox 98.2 F 102 H 16 110/73 99 11/25/17 11:01 11/25/17 11:01 11/25/17 11:01 11/25/17 11:01 11/25/17 11:01
[2017-11-25 11:49] LABS: ABSOLUTE BASOPHILS # (AUTO) 0.1 10^3/uL (0.0-0.2); ABSOLUTE EOSINOPHILS # (AUTO) 0.1 10^3/uL (0.0-0.6); ABSOLUTE LYMPHOCYTES (AUTO) 2.3 10^3/uL (0.5-4.7); ABSOLUTE NEUT (AUTO) 7.5 10^3/uL (1.7-8.2); BASOPHILS % (AUTO) 0.6 % (0-2); EOSINOPHILS % (AUTO) 0.8 % (0-6); HEMATOCRIT 39.3 % (36.0-47.0); HEMOGLOBIN 14.1 g/dL (12.0-15.5); LYMPHOCYTES % (AUTO) 20.8 % (13-45); MEAN CORPUSCULAR HEMOGLOBIN 32.2 pg (27.0-33.4); MEAN CORPUSCULAR HGB CONC 35.9 g/dL (32.0-36.0); MEAN CORPUSCULAR VOLUME 90 fl (80-97); MONOCYTES % (AUTO) 9.2 % (3-13); PLATELET COUNT 350 10^3/uL (150-450); RED BLOOD COUNT 4.38 10^6/uL (3.72-5.28); RED CELL DISTRIBUTION WIDTH 13.2 % (11.5-14.0); SEGMENTED NEUTROPHILS % (AUTO) 68.6 % (42-78); TOTAL CELLS COUNTED % (AUTO) 100 %
--- NOTE | 2017-11-25 11:55 | ER Document Report ---
ED GI/ - General Chief Complaint: Vomiting Stated Complaint: VOMITING Time Seen by Provider: 11/25/17 11:23 Mode of Arrival: Ambulatory Information source: Patient Notes: 22-year-old female presents to ED for complaint of hyperemesis gravidarum since . She states she is not able to keep any food or fluids down. She states she went to [facility] and they sent to the emergency room to get some fluids. She denies any pain or discomfort except for the nausea and vomiting. TRAVEL OUTSIDE OF THE [place] IN LAST 30 DAYS: No - HPI Patient complains to provider of: , Vomiting Onset: Other Timing/Duration: Gradual - , Intermittent, Persistent Quality of pain: No pain Pain Level: Denies Vaginal bleeding (Compared to normal period): None Menstrual period history: LMP: 12 weeks : 1 Para: 0 OB ultrasound done: Yes Associated symptoms: Nausea, Vomiting Exacerbated by: Food - Food all liquids Relieved by: Denies Similar symptoms previously: Yes Recently seen / treated by doctor: Yes - Related Data Allergies/Adverse Reactions: ciprofloxacin [From Ciprodex] Allergy (Verified 08/02/17 21:44) dexamethasone [From Ciprodex] Allergy (Verified 08/02/17 21:44) Past Medical History - General Information source: Patient - Social History Smoking Status: Never Smoker Cigarette use (# per day): No Chew tobacco use (# tins/day): No Smoking Education Provided: No Frequency of alcohol use: Social Drug Abuse: None Lives with: Family Family History: Reviewed & Not Pertinent Patient has suicidal ideation: No Patient has homicidal ideation: No - Past Medical History Cardiac Medical History: Reports: None Pulmonary Medical History: Reports: None EENT Medical History: Reports: None Neurological Medical History: Reports: None Endocrine Medical History: Reports: None Renal/ Medical History: Reports: None Malignancy Medical History: Reports: None GI Medical History: Reports: None Musculoskeltal Medical History: Reports None Skin Medical History: Reports None Psychiatric Medical History: Reports: None Traumatic Medical History: Reports: None Infectious Medical History: Reports: None Past Surgical History: Reports: Hx Oral Surgery - wisdom teeth, Hx Orthopedic Surgery - knee - Immunizations Hx Diphtheria, Pertussis, Tetanus Vaccination: Yes Review of Systems - Review of Systems Notes: Constitutional: [PRESENT: as per HPI. ABSENT: chills, fever(s), headache(s), weight gain, weight loss] Eyes: [ABSENT: visual disturbances] Ears: [ABSENT: hearing changes] Cardiovascular: [ABSENT: chest pain, dyspnea on exertion, edema, orthropnea, palpitations] Respiratory: [ABSENT: cough, hemoptysis] Gastrointestinal: [ABSENT: abdominal pain, constipation, diarrhea, hematemesis, hematochezia] patient complains of nausea and vomiting with any food. Patient is 12 weeks . Genitourinary: [ABSENT: dysuria, hematuria] Musculoskeletal: [ABSENT: joint swelling] Integumentary: [ABSENT: rash, wounds] Neurological: [ABSENT: abnormal gait, abnormal speech, confusion, dizziness, focal weakness, syncope] Psychiatric: [ABSENT: anxiety, depression, homicidal ideation, suicidal ideation ] Endocrine: [ABSENT: cold intolerance, heat intolerance, menstrual abnormalities , polydipsia, polyuria] Hematologic/Lymphatic: [ABSENT: easy bleeding, easy bruising, lymphadenopathy] Physical Exam - Vital signs Vitals: Temp Pulse Resp BP Pulse Ox 98.2 F 102 H 16 110/73 99 11/25/17 11:01 11/25/17 11:01 11/25/17 11:01 11/25/17 11:01 11/25/17 11:01 - Notes Notes: PHYSICAL EXAMINATION: GENERAL: Well-appearing, well-nourished and in no acute distress. HEAD: Atraumatic, normocephalic. EYES: Pupils equal round and reactive to light, extraocular movements intact, conjunctiva are normal. ENT: Nares patent, oropharynx clear without exudates. Moist mucous membranes. NECK: Normal range of motion, supple without lymphadenopathy LUNGS: Breath sounds clear to auscultation bilaterally and equal. No wheezes rales or rhonchi. HEART: Regular rate and rhythm without murmurs ABDOMEN: Soft, nontender, nondistended abdomen. No guarding, no rebound. No masses appreciated. Female abdomen 12 weeks Musculoskeletal: Normal range of motion, no pitting or edema. No cyanosis. NEUROLOGICAL: Cranial nerves grossly intact. Normal speech, normal gait. Normal sensory, motor exams PSYCH: Normal mood, normal affect. SKIN: Warm, Dry, normal turgor, no rashes or lesions noted. Course - Re-evaluation Re-evalutation: 11/25/17 20:49 Labs discussed with patient and written report given to patient. Patient was discharged home after she was able to drink 2 bruce josé's eat crackers and applesauce without emesis. Patient was instructed to please follow-up with [facility]/ [facility] tomorrow to schedule follow-up appointment. Patient was given a prescription for Reglan as this is what prevented her from vomiting in the emergency room. Patient to continue with her other medications prescribed by [facility]. Patient given instructions on use of bruce snaps and bruce josé also to help with the nausea. - Vital Signs Vital signs: Temp Pulse Resp BP Pulse Ox 98.0 F 105 H 18 124/59 L 97 11/25/17 13:40 11/25/17 13:40 11/25/17 13:40 11/25/17 13:50 11/25/17 13:50 - Laboratory Result Diagrams: 11/25/17 11:35 11/25/17 11:35 Laboratory results interpreted by me: 11/25/17 11/25/17 11/25/17 11:35 11:35 11:35 WBC 11.0 H Carbon Dioxide 21 L Direct Bilirubin 0.5 H Urine Protein 30 H Urine Ketones 80 H Urine Urobilinogen 4.0 H Ur Leukocyte Esterase TRACE H Discharge - Discharge Clinical Impression: Hyperemesis affecting , antepartum Condition: Stable Disposition: HOME, SELF-CARE Additional Instructions: Hyperemesis Gravidarum Hyperemesis gravidarum is the medical term for severe vomiting during . We don't know exactly why it occurs, but it's a common problem. Dehydration can occur. This reduces blood flow to the placenta, decreasing the baby's nourishment. The baby will also become dehydrated. There can be harmful changes in blood sodium, potassium, or acid balance. Our goal is to correct, and prevent, dehydration. For severe cases, we give IV fluids. Antinausea medication will be prescribed. (Don't be concerned about " defects" -- the risk to you and your baby from the hyperemesis is the biggest problem. The antinausea medication is very safe at this stage of .) Call the doctor if you have vaginal bleeding, abdominal pain, severe lightheadedness or weakness, or other alarming symptoms. Reglan (Metoclopramide) Reglan has been prescribed. This medicine affects the stomach and intestines. It can be used to treat nausea and vomiting, to prevent reflux of stomach acid up into the esophagus, or to increase the contractions of the stomach and intestines. It is often prescribed for esophagitis, and for paralysis of the stomach in diabetics. Reglan can cause either mild restlessness or drowsiness. You should contact the doctor at once if you become extremely restless, anxious, or cannot sleep, or if you develop uncontrollable motions of the lips, tongue, or jaw. Do not take alcohol with this medicine. Do not drive or operate machinery until you have been taking this medicine long enough to know how it affects you. Call the doctor if you develop abdominal pains, lightheadedness, black stool, or blood in the stool or vomitus. Intravenous (IV) Fluids As part of your care today, you received intravenous (IV) fluids. IV fluids are administered to patients who are dehydrated or to those who have certain chemical (electrolyte) abnormalities that need correcting. FOLLOW-UP CARE: If you have been referred to a physician for follow-up care, call the physician s office for an appointment as you were instructed or within the next two days. If you experience worsening or a significant change in your symptoms, notify the physician immediately or return to the Emergency Department at any time for re-evaluation. Prescriptions: Metoclopramide HCl [Reglan 10 mg Tablet] 10 mg PO Q6HP PRN #14 tablet PRN Reason: For Nausea/Vomiting Referrals: IZABEL COPELAND MD [Primary Care Provider] - Follow up tomorrow
[2017-11-25] MEDS ORDERED: PYRIDOXINE HCL 50 MG TABLET PO ONE (11:56)
[2017-11-25 12:04] LABS: APPEARANCE,URINE CLOUDY; BILIRUBIN,URINE NEGATIVE (NEGATIVE); COLOR,URINE AMBER; GLUCOSE, URINE NEGATIVE (NEGATIVE); KETONES,URINE 80 mg/dL (NEGATIVE); LEUKOCYTE ESTERASE,URINE TRACE (NEGATIVE); NITRITE,URINE NEGATIVE (NEGATIVE); PROTEIN,URINE 30 mg/dL (NEGATIVE); URINE SPECIFIC GRAVITY 1.032
[2017-11-25 12:08] LABS: ALANINE AMINOTRANSFERASE 50 U/L (9-52); ALBUMIN 4.6 g/dL (3.5-5.0); ALKALINE PHOSPHATASE 51 U/L (38-126); ANION GAP 15 (5-19); ASPARTATE AMINO TRANSFERASE 29 U/L (14-36); BILIRUBIN,DIRECT 0.5 mg/dL (0.0-0.4); BILIRUBIN,TOTAL 0.8 mg/dL (0.2-1.3); BLOOD UREA NITROGEN 9 mg/dL (7-20); CALCIUM 10.2 mg/dL (8.4-10.2); CARBON DIOXIDE 21 mmol/L (22-30); CHLORIDE 104 mmol/L (98-107); GLUCOSE 82 mg/dL (75-110); POTASSIUM 3.7 mmol/L (3.6-5.0); SODIUM 139.8 mmol/L (137-145); TOTAL PROTEIN 7.7 g/dL (6.3-8.2)
[2017-11-25 13:55] VITALS: BP 124/59
== END 2017-11-25 13:56 | disposition home or self-care (01) ==
LOC: ER 10:48
DX: O21.0 Mild hyperemesis gravidarum (principal); Z3A.12 12 weeks gestation of pregnancy; Z88.1 Allergy status to other antibiotic agents
CPT/HCPCS: 99283; 96361; 96374; 36415; 85025; 80053; 81001; J2765; J7030

== ENCOUNTER 2018-02-10 20:26 | Outpatient (CLI) | payer OTHER ==
[2018-02-10 21:14] LABS: APPEARANCE,URINE CLOUDY; BILIRUBIN,URINE SMALL (NEGATIVE); COLOR,URINE AMBER; GLUCOSE, URINE NEGATIVE (NEGATIVE); KETONES,URINE TRACE mg/dL (NEGATIVE); LEUKOCYTE ESTERASE,URINE TRACE (NEGATIVE); NITRITE,URINE NEGATIVE (NEGATIVE); PROTEIN,URINE 30 mg/dL (NEGATIVE); URINE SPECIFIC GRAVITY 1.033
[2018-02-10 21:17] LABS: AMNISURE (ROM) NEGATIVE (NEGATIVE)
[2018-02-10 21:31] LABS: URINE AMPHETAMINES SCREEN NEGATIVE; URINE BARBITURATES SCREEN NEGATIVE; URINE BENZODIAZEPINES SCREEN NEGATIVE; URINE COCAINE SCREEN NEGATIVE; URINE MARIJUANA (THC) SCREEN NEGATIVE; URINE METHADONE SCREEN NEGATIVE; URINE PHENCYCLIDINE SCREEN NEGATIVE
[2018-02-10] MEDS ORDERED: RINGERS SOLUTION,LACTATED 1,000 ML IV PRN (21:33)
== END 2018-02-10 22:53 | disposition home or self-care (01) ==
LOC: LC 20:26
PROVIDERS: ATTEND Obstetrics & Gynecology
PROC: 4A1HXCZ Monitoring of Products of Conception, Cardiac Rate, External Approach (ICD-10-PCS; principal; 2018-02-10)
DX: O47.02 False labor before 37 completed weeks of gestation, second trimester (principal); Z3A.23 23 weeks gestation of pregnancy
CPT/HCPCS: 80307; 81001; 84112

== ENCOUNTER 2018-06-03 06:38 | Outpatient (CLI) | payer OTHER ==
[2018-06-03 07:13] LABS: APPEARANCE,URINE CLOUDY; BILIRUBIN,URINE NEGATIVE (NEGATIVE); GLUCOSE, URINE NEGATIVE (NEGATIVE); KETONES,URINE NEGATIVE (NEGATIVE); LEUKOCYTE ESTERASE,URINE SMALL (NEGATIVE); NITRITE,URINE NEGATIVE (NEGATIVE); PROTEIN,URINE 30 mg/dL (NEGATIVE); URINE SPECIFIC GRAVITY 1.026; UROBILINOGEN,URINE NEGATIVE mg/dL (<2.0)
[2018-06-03 07:16] LABS: COLOR,URINE DARK YELLOW
[2018-06-03] MEDS ORDERED: NALBUPHINE HCL INJ 10 MG/1 ML AMPULE ONE (07:46)
[2018-06-03 07:49] LABS: URINE AMPHETAMINES SCREEN NEGATIVE; URINE BARBITURATES SCREEN NEGATIVE; URINE BENZODIAZEPINES SCREEN NEGATIVE; URINE COCAINE SCREEN NEGATIVE; URINE MARIJUANA (THC) SCREEN NEGATIVE; URINE METHADONE SCREEN NEGATIVE; URINE PHENCYCLIDINE SCREEN NEGATIVE
[2018-06-03] MEDS ORDERED: NORMAL SALINE 1000 ML 1,000 ML IV PRN (08:24)
--- NOTE | 2018-06-03 10:00 | Non Stress Test Report ---
Non Stress Test Datetime Report Generated by CPN: 06/03/2018 10:00 DEMOGRAPHIC EGA NST: 39.4 INDICATION Indication for Study: Other Indication for Study (NST) Other: labor check VITAL SIGNS Temperature - NST: 98.8 NBPSYS NST: 132 NBPDIA NST: 62 MONITORING Monitor Explained: Monitor Explained; Test Explained; Patient Verbalized Understanding Time on Monitor: 06/03/2018 08:55 Time off Monitor: 06/03/2018 09:16 NST Duration: 21 NST INTERVENTIONS NST Interventions: IV Fluids Physician Notified NST: Dr. Hathaway BABY A: [id number] BABY A Movement : Present Contraction Frequency : 4-10 FHR Baseline : 150 Accelerations : 15X15 Decelerations : None Variability : Moderate 6-25bpm NST Review: Meets Criteria for Reactive NST NST Review and Verified By : Juan conklin RN NSLisy Results: Reactive NST REPORT Report Trigger: Send Report
== END 2018-06-03 09:30 | disposition home or self-care (01) ==
LOC: LC 06:38
PROVIDERS: ATTEND Obstetrics & Gynecology
PROC: 4A1HXCZ Monitoring of Products of Conception, Cardiac Rate, External Approach (ICD-10-PCS; principal; 2018-06-03)
DX: O99.283 Endocrine, nutritional and metabolic diseases complicating pregnancy, third trimester (principal); E86.0 Dehydration; O47.1 False labor at or after 37 completed weeks of gestation; Z3A.38 38 weeks gestation of pregnancy
CPT/HCPCS: 59025; 81005; 80307; J2300

== ENCOUNTER 2018-11-14 21:31 | Emergency (ER) | payer OTHER ==
[2018-11-14 23:05] LABS: ABSOLUTE BASOPHILS # (AUTO) 0.1 10^3/uL (0.0-0.2); ABSOLUTE EOSINOPHILS # (AUTO) 0.2 10^3/uL (0.0-0.6); ABSOLUTE LYMPHOCYTES (AUTO) 3.7 10^3/uL (0.5-4.7); BASOPHILS % (AUTO) 1.2 % (0-2); EOSINOPHILS % (AUTO) 1.8 % (0-6); HEMATOCRIT 38.7 % (36.0-47.0); HEMOGLOBIN 13.6 g/dL (12.0-15.5); LYMPHOCYTES % (AUTO) 37.2 % (13-45); MEAN CORPUSCULAR HGB CONC 35.1 g/dL (32.0-36.0); MEAN CORPUSCULAR VOLUME 88 fl (80-97); MONOCYTES % (AUTO) 9.6 % (3-13); PLATELET COUNT 320 10^3/uL (150-450); RED BLOOD COUNT 4.38 10^6/uL (3.72-5.28); RED CELL DISTRIBUTION WIDTH 13.6 % (11.5-14.0); SEGMENTED NEUTROPHILS % (AUTO) 50.2 % (42-78); TOTAL CELLS COUNTED % (AUTO) 100 %
--- NOTE | 2018-11-14 23:19 | RADIOLOGY REPORT (SQ) ---
EXAM DESCRIPTION: XR CHEST 1 VIEW COMPLETED DATE/TME: 11/14/2018 22:44 CLINICAL HISTORY: 23 years, Female, cp/sob COMPARISON: 05/17/2017 chest NUMBER OF VIEWS: 1 TECHNIQUE: Portable chest LIMITATIONS: None. FINDINGS: Heart size is normal. Lungs are clear. No pneumothorax IMPRESSION: Negative chest copyright 2010 [employer]- All Rights Reserved
[2018-11-14 23:22] LABS: ALANINE AMINOTRANSFERASE 59 U/L (9-52); ALBUMIN 4.7 g/dL (3.5-5.0); ALKALINE PHOSPHATASE 78 U/L (38-126); ANION GAP 11 (5-19); ASPARTATE AMINO TRANSFERASE 26 U/L (14-36); BILIRUBIN,DIRECT 0.2 mg/dL (0.0-0.4); BILIRUBIN,TOTAL 0.4 mg/dL (0.2-1.3); BLOOD UREA NITROGEN 10 mg/dL (7-20); CALCIUM 9.8 mg/dL (8.4-10.2); CARBON DIOXIDE 25 mmol/L (22-30); CHLORIDE 107 mmol/L (98-107); GLUCOSE 101 mg/dL (75-110); POTASSIUM 4.1 mmol/L (3.6-5.0); SODIUM 142.9 mmol/L (137-145); TOTAL PROTEIN 7.1 g/dL (6.3-8.2)
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
[2018-11-15 01:18] VITALS: BP 120/84
--- NOTE | 2018-11-15 08:09 | EKG REPORT ---
SEVERITY:- NORMAL ECG - SINUS RHYTHM : Confirmed by: Ladarius Palacios MD 15-Nov-2018 08:08:30
== END 2018-11-15 01:23 | disposition home or self-care (01) ==
LOC: ER 21:31
DX: R00.2 Palpitations (principal); R07.9 Chest pain, unspecified; R20.2 Paresthesia of skin; F41.9 Anxiety disorder, unspecified; Z88.3 Allergy status to other anti-infective agents
CPT/HCPCS: 36415; 71045; 80053; 84484; 85025; 93005; 93010; 99285

== ENCOUNTER 2019-04-19 23:34 | Emergency (ER) | payer OTHER ==
[2019-04-20 01:50] LABS: ABSOLUTE BASOPHILS # (AUTO) 0.1 10^3/uL (0.0-0.2); ABSOLUTE EOSINOPHILS # (AUTO) 0.2 10^3/uL (0.0-0.6); ABSOLUTE LYMPHOCYTES (AUTO) 3.9 10^3/uL (0.5-4.7); ABSOLUTE MONOCYTES (AUTO) 0.8 10^3/uL (0.1-1.4); ABSOLUTE NEUT (AUTO) 5.3 10^3/uL (1.7-8.2); BASOPHILS % (AUTO) 0.8 % (0-2); EOSINOPHILS % (AUTO) 1.9 % (0-6); HEMATOCRIT 39.1 % (36.0-47.0); HEMOGLOBIN 13.6 g/dL (12.0-15.5); LYMPHOCYTES % (AUTO) 38.2 % (13-45); MEAN CORPUSCULAR HGB CONC 34.9 g/dL (32.0-36.0); MEAN CORPUSCULAR VOLUME 89 fl (80-97); MONOCYTES % (AUTO) 7.7 % (3-13); PLATELET COUNT 362 10^3/uL (150-450); RED CELL DISTRIBUTION WIDTH 12.9 % (11.5-14.0); SEGMENTED NEUTROPHILS % (AUTO) 51.4 % (42-78); TOTAL CELLS COUNTED % (AUTO) 100 %; WHITE BLOOD COUNT 10.3 10^3/uL (4.0-10.5)
--- NOTE | 2019-04-20 02:03 | ER Document Report ---
ED Medical Screen (RME) - General Chief Complaint: Abdominal Pain Stated Complaint: STOMACH PAIN Time Seen by Provider: 04/20/19 01:54 Mode of Arrival: Ambulatory Information source: Patient Notes: Patient is an otherwise healthy 23-year-old female presented to the emergency department chief complaint of right upper quadrant pain that radiates through to the back. She reports pain has been intermittent since August. Patient reports over the last couple days the pain has become progressively worse and more constant. She reports nausea, vomiting and diarrhea with the pain. She denies any fevers. Exam: Tenderness to the right upper quadrant. I have greeted and performed a rapid initial assessment of this patient. A comprehensive ED assessment and evaluation of the patient, analysis of test results and completion of the medical decision making process will be conducted by additional ED providers. I have specifically instructed the patient or family members with the patient to immediately return to any nursing staff should anything change in the patient's condition or with their chief complaint. This medical record was dictated with voice recognizing software. There may be grammatical, syntax errors that are unintended. TRAVEL OUTSIDE OF THE [place] IN LAST 30 DAYS: No - Related Data Allergies/Adverse Reactions: ciprofloxacin [From Ciprodex] Allergy (Verified 11/14/18 22:36) dexamethasone [From Ciprodex] Allergy (Verified 11/14/18 22:36) Past Medical History Renal/ Medical History: Denies: Hx Peritoneal Dialysis Past Surgical History: Reports: Hx Oral Surgery - wisdom teeth, Hx Orthopedic Surgery - knee - Immunizations Hx Diphtheria, Pertussis, Tetanus Vaccination: Yes History of Influenza Vaccine for 06/2017 - 11/2017 Season: No Physical Exam - Vital signs Vitals: Temp Pulse Resp BP Pulse Ox 97.6 F 93 14 122/77 98 04/19/19 23:39 04/19/19 23:39 04/19/19 23:39 04/19/19 23:39 04/19/19 23:39 Course - Vital Signs Vital signs: Temp Pulse Resp BP Pulse Ox 97.6 F 93 14 122/77 98 04/19/19 23:39 04/19/19 23:39 04/19/19 23:39 04/19/19 23:39 04/19/19 23:39 - Laboratory Result Diagrams: 04/20/19 01:38 04/20/19 01:38
[2019-04-20 02:08] LABS: APPEARANCE,URINE SLIGHTLY-CLOUDY; BILIRUBIN,URINE NEGATIVE (NEGATIVE); COLOR,URINE YELLOW; GLUCOSE, URINE NEGATIVE (NEGATIVE); KETONES,URINE NEGATIVE (NEGATIVE); LEUKOCYTE ESTERASE,URINE NEGATIVE (NEGATIVE); NITRITE,URINE NEGATIVE (NEGATIVE); PROTEIN,URINE NEGATIVE (NEGATIVE); URINE SPECIFIC GRAVITY 1.024; UROBILINOGEN,URINE NEGATIVE mg/dL (<2.0)
[2019-04-20 02:19] LABS: ALANINE AMINOTRANSFERASE 29 U/L (9-52); ALBUMIN 4.5 g/dL (3.5-5.0); ALKALINE PHOSPHATASE 70 U/L (38-126); ANION GAP 11 (5-19); ASPARTATE AMINO TRANSFERASE 19 U/L (14-36); BILIRUBIN,DIRECT 0.2 mg/dL (0.0-0.4); BILIRUBIN,TOTAL 0.2 mg/dL (0.2-1.3); BLOOD UREA NITROGEN 12 mg/dL (7-20); CALCIUM 10.2 mg/dL (8.4-10.2); CARBON DIOXIDE 26 mmol/L (22-30); CHLORIDE 105 mmol/L (98-107); GLUCOSE 105 mg/dL (75-110); POTASSIUM 4.3 mmol/L (3.6-5.0); TOTAL PROTEIN 7.2 g/dL (6.3-8.2)
--- NOTE | 2019-04-20 03:36 | ER Document Report ---
ED General - General Mode of Arrival: Ambulatory Information source: Patient, Relative, [facility] Records TRAVEL OUTSIDE OF THE [place] IN LAST 30 DAYS: No - HPI Onset: Other Onset/Duration: Intermittent Quality of pain: Achy, Sharp Severity: Mild Associated symptoms: Chills, Nausea, Sweating, Other. denies: Chest pain, Diarrhea, Vomiting Exacerbated by: Food Relieved by: Denies Similar symptoms previously: Yes Recently seen / treated by doctor: Yes <JAKE FERRERA - Last Filed: 04/20/19 04:13> <RE HANSEN - Last Filed: 04/20/19 04:38> - General Chief Complaint: Abdominal Pain Stated Complaint: STOMACH PAIN Time Seen by Provider: 04/20/19 01:54 Notes: 23-year-old female with no reported past medical history presents with complaint of right upper quadrant abdominal pain that have been ongoing intermittently for 7 months. Patient describes the pain as consistently aching with intermittent sharp pain that worsens after meals. Patient has associated chills, sweats and nausea. She did have an episode of vomiting 5 days ago. [facility] and given GI follow-up. She states she has an appointment in April. Patient denies chest pain, lower abdominal pain, dysuria, hematuria, vaginal discharge. Patient is currently nausea and pain-free. (JAKE FERRERA) - Related Data Allergies/Adverse Reactions: ciprofloxacin [From Ciprodex] Allergy (Verified 11/14/18 22:36) dexamethasone [From Ciprodex] Allergy (Verified 11/14/18 22:36) Past Medical History - General Information source: Patient - Social History Smoking Status: Never Smoker Frequency of alcohol use: None Drug Abuse: None Lives with: Family Family History: Reviewed & Not Pertinent Patient has suicidal ideation: No Patient has homicidal ideation: No - Medical History Medical History: Negative Renal/ Medical History: Denies: Hx Peritoneal Dialysis Past Surgical History: Reports: Hx Oral Surgery - wisdom teeth, Hx Orthopedic Surgery - knee - Immunizations Hx Diphtheria, Pertussis, Tetanus Vaccination: Yes <JAKE FERRERA - Last Filed: 04/20/19 04:13> Review of Systems <JAKE FERRERA - Last Filed: 04/20/19 04:13> - Review of Systems Notes: REVIEW OF SYSTEMS: CONSTITUTIONAL : Denies fever, chills, or sweats. Denies recent illness. Denies weight loss, recent hospitalizations. EENT: Denies visual changes, eye pain. Denies sore throat, oral lesions, difficulty swallowing. CARDIOVASCULAR: Denies chest pain. Denies palpitations. Denies lower extremity edema. RESPIRATORY: Denies cough. Denies shortness of breath, wheezing. GASTROINTESTINAL: Denies abdominal pain or distention. Denies nausea, vomiting, or diarrhea. Denies blood in vomitus, stools, or per rectum. Denies black, tarry stools. Denies constipation. GENITOURINARY: Denies difficulty urinating, painful urination, frequency, blood in urine, or vaginal discharge. MUSCULOSKELETAL: Denies back or neck pain or stiffness. Denies joint pain or swelling. SKIN: Denies rash, lesions or sores. HEMATOLOGIC : Denies easy bruising or bleeding. LYMPHATIC: Denies swollen glands. NEUROLOGICAL: Denies confusion or altered mental status. Denies loss of consciousness. Denies dizziness or lightheadedness. Denies headache. Denies weakness or paralysis. Denies problems difficulty with ambulation, slurred speech. Denies sensory loss, numbness, or tingling. Denies seizures. PSYCHIATRIC: Denies anxiety or stress. Denies depression, suicidal ideation, or homicidal ideation. Denies visual or auditory hallucinations. (JAKE FERRERA) Physical Exam <JAKE FERRERA - Last Filed: 04/20/19 04:13> - Vital signs Vitals: Temp Pulse Resp BP Pulse Ox 97.6 F 93 14 122/77 98 04/19/19 23:39 04/19/19 23:39 04/19/19 23:39 04/19/19 23:39 04/19/19 23:39 - Notes Notes: PHYSICAL EXAMINATION: GENERAL: Well-appearing, well-nourished and in no acute distress. HEAD: Atraumatic, normocephalic. EYES: Pupils equal round and reactive to light, extraocular movements intact, conjunctiva are normal. ENT: Nares patent, oropharynx clear without exudates. Moist mucous membranes. NECK: Normal range of motion, supple without lymphadenopathy LUNGS: Breath sounds clear to auscultation bilaterally and equal. No wheezes rales or rhonchi. HEART: Regular rate and rhythm without murmurs ABDOMEN: Soft, nontender, nondistended abdomen. No guarding, no rebound. No masses appreciated. Negative Wilkins's. Negative McBurney's. No CVA tenderness Female : deferred Musculoskeletal: Normal range of motion, no pitting or edema. No cyanosis. NEUROLOGICAL: Cranial nerves grossly intact. Normal speech, normal gait. Normal sensory, motor exams PSYCH: Normal mood, normal affect. SKIN: Warm, Dry, normal turgor, no rashes or lesions noted. (JAKE FERRERA) Course - Laboratory Result Diagrams: 04/20/19 01:38 04/20/19 01:38 <JAKE FERRERA - Last Filed: 04/20/19 04:13> - Laboratory Result Diagrams: 04/20/19 01:38 04/20/19 01:38 <RE HANSEN - Last Filed: 04/20/19 04:38> - Re-evaluation Re-evalutation: 04/20/19 03:47 Laboratory 04/20/19 04/20/19 04/20/19 01:38 01:38 01:38 WBC 10.3 RBC 4.40 Hgb 13.6 Hct 39.1 MCV 89 MCH 31.0 MCHC 34.9 RDW 12.9 Plt Count 362 Seg Neutrophils % 51.4 Lymphocytes % 38.2 Monocytes % 7.7 Eosinophils % 1.9 Basophils % 0.8 Absolute Neutrophils 5.3 Absolute Lymphocytes 3.9 Absolute Monocytes 0.8 Absolute Eosinophils 0.2 Absolute Basophils 0.1 Sodium 141.9 Potassium 4.3 Chloride 105 Carbon Dioxide 26 Anion Gap 11 BUN 12 Creatinine 0.72 Est GFR ( Amer) > 60 Est GFR (Non-Af Amer) > 60 Glucose 105 Calcium 10.2 Total Bilirubin 0.2 Direct Bilirubin 0.2 Neonat Total Bilirubin Not Reportable Neonat Direct Bilirubin Not Reportable Neonat Indirect Bili Not Reportable AST 19 ALT 29 Alkaline Phosphatase 70 Total Protein 7.2 Albumin 4.5 Lipase 99.6 Urine Color YELLOW Urine Appearance SLIGHTLY-CLOUDY Urine pH 6.0 Ur Specific Bandy 1.024 Urine Protein NEGATIVE Urine Glucose (UA) NEGATIVE Urine Ketones NEGATIVE Urine Blood NEGATIVE Urine Nitrite NEGATIVE Urine Bilirubin NEGATIVE Urine Urobilinogen NEGATIVE Ur Leukocyte Esterase NEGATIVE Urine WBC (Auto) 5 Urine RBC (Auto) 1 Urine Bacteria (Auto) TRACE Squamous Epi Cells Auto 7 Urine Mucus (Auto) RARE Urine Ascorbic Acid NEGATIVE Urine HCG, Qual NEGATIVE (JAKE FERRERA) - Vital Signs Vital signs: Temp Pulse Resp BP Pulse Ox 97.6 F 93 14 122/77 98 04/19/19 23:39 04/19/19 23:39 04/19/19 23:39 04/19/19 23:39 04/19/19 23:39 Discharge <JAKE FERRERA - Last Filed: 04/20/19 04:13> <JADESANGA Carla - Last Filed: 04/20/19 04:38> - Discharge Clinical Impression: Right upper quadrant abdominal pain Condition: Good Disposition: HOME, SELF-CARE Instructions: Abdominal Pain ([facility]), Antinausea Medication ([facility]), Gallbladder Disease ([facility]), Low-Fat Diet ([facility]) Additional Instructions: You have been seen in the Emergency Department (ED) for abdominal pain. Your evaluation did not identify a clear cause of your symptoms but was generally reassuring. Please follow up with your doctor as soon as possible regarding today's emergent visit and the symptoms that are bothering you. Return to the ED if your abdominal pain worsens or fails to improve, you develop bloody vomiting, bloody diarrhea, you are unable to tolerate fluids due to vomiting, fever greater than 101, or other symptoms that concern you. Prescriptions: Ondansetron [Zofran Odt 4 mg Tablet] 1 - 2 tab PO Q4H PRN #15 tab.rapdis PRN Reason: For Nausea/Vomiting Sucralfate [Carafate 1 gm Tablet] 1 gm PO ACHS #30 tablet Forms: Return to Work Referrals: ARLETTE MAS MD [ACTIVE STAFF] - Follow up as needed
--- NOTE | 2019-04-20 04:12 | RADIOLOGY REPORT (SQ) ---
Ultrasound right upper quadrant on 04/20/2019 at 3:10 AM Clinical indications: Right upper quadrant pain, nausea and vomiting and diarrhea COMPARISON: None FINDINGS: Multiple sonographic images are obtained throughout the right upper quadrant, both transverse and sagittal images are obtained. Visualized pancreas is unremarkable. Visualized aorta and IVC are unremarkable. Common duct measures 3 mm which is within normal limits mitigating against obstruction of the biliary tree. Visualized liver is homogeneous without focal liver lesion. The gallbladder is contracted. This gives an appearance of gallbladder wall thickening. No gallstones or pericholecystic fluid is noted. Patient states she has been n.p.o. for seven hours however the appearance of the gallbladder favors the patient not to have been properly n.p.o. Right kidney shows no hydronephrosis. IMPRESSION: Contracted gallbladder with gallbladder wall thickening, this may just be related to the patient not being properly n.p.o. If there is high clinical concern for acalculous cholecystitis or chronic cholecystitis consider follow-up hepatobiliary scan. Otherwise consider repeat right upper quadrant ultrasound when the patient is definitely properly n.p.o.
[2019-04-20 04:42] VITALS: BP 124/68
== END 2019-04-20 04:41 | disposition home or self-care (01) ==
LOC: ER 23:34
DX: R10.11 Right upper quadrant pain (principal); R11.2 Nausea with vomiting, unspecified; R19.7 Diarrhea, unspecified; R68.83 Chills (without fever); R61 Generalized hyperhidrosis
CPT/HCPCS: 36415; 76705; 80053; 81001; 81025; 83690; 85025; 99284

== ENCOUNTER 2019-05-07 08:17 | Day surgery (SDC) | payer OTHER ==
[2019-05-06 09:49] LABS: HEMATOCRIT 40.2 % (36.0-47.0); HEMOGLOBIN 13.8 g/dL (12.0-15.5); MEAN CORPUSCULAR HEMOGLOBIN 30.8 pg (27.0-33.4); MEAN CORPUSCULAR HGB CONC 34.4 g/dL (32.0-36.0); MEAN CORPUSCULAR VOLUME 90 fl (80-97); PLATELET COUNT 308 10^3/uL (150-450); RED BLOOD COUNT 4.48 10^6/uL (3.72-5.28); WHITE BLOOD COUNT 8.5 10^3/uL (4.0-10.5)
[2019-05-06 10:16] LABS: ALBUMIN 4.4 g/dL (3.5-5.0); ALKALINE PHOSPHATASE 74 U/L (38-126); AMYLASE 47 U/L (30-110); ANION GAP 11 (5-19); ASPARTATE AMINO TRANSFERASE 19 U/L (14-36); BILIRUBIN,DIRECT 0.3 mg/dL (0.0-0.4); BILIRUBIN,TOTAL 0.5 mg/dL (0.2-1.3); BLOOD UREA NITROGEN 10 mg/dL (7-20); CALCIUM 9.5 mg/dL (8.4-10.2); CARBON DIOXIDE 23 mmol/L (22-30); CHLORIDE 106 mmol/L (98-107); GLUCOSE 92 mg/dL (75-110); POTASSIUM 4.3 mmol/L (3.6-5.0); TOTAL PROTEIN 7.1 g/dL (6.3-8.2)
[~2019-05-07 08:17] MED LIST: ACETAMINOPHEN 325 MG TABLET PO PRN; CEFAZOLIN 1 GM/D5W RTU 1 GM/50 ML RTUPB IV PRN; METRONIDAZOLE 500 MG/NS RTU 500 MG/100 ML RTUPB IV PRN
[2019-05-07] MEDS ORDERED: BUPIVACAINE HCL 0.25% /EPINEPHRINE INJ/PF 30 ML SDV ONE (08:22)
[2019-05-07] MEDS ORDERED: METRONIDAZOLE 500 MG/NS RTU 500 MG/100 ML RTUPB IV ONE (08:41)
[2019-05-07] MEDS ORDERED: CEFAZOLIN 1 GM/D5W RTU 1 GM/50 ML RTUPB IV ONE (08:41)
[2019-05-07] MEDS ORDERED: METOCLOPRAMIDE HCL INJ/PF 10 MG/2 ML SDV ONE (10:00)
[2019-05-07] MEDS ORDERED: SCOPOLAMINE HYDROBROMIDE 1.5 MG PATCH.TD72 ONE (10:00)
[2019-05-07] MEDS ORDERED: FAMOTIDINE INJ/PF 20 MG/2 ML SDV IV ONE ×2 (10:01→10:15)
[2019-05-07] MEDS ORDERED: RINGERS SOLUTION,LACTATED 1,000 ML IV PRN (10:02)
[2019-05-07] MEDS ORDERED: SCOPOLAMINE HYDROBROMIDE 1.5 MG PATCH.TD72 TD ONE (10:15)
[2019-05-07] MEDS ORDERED: METOCLOPRAMIDE HCL INJ/PF 10 MG/2 ML SDV IV ONE (10:15)
[2019-05-07] MEDS ORDERED: FENTANYL CITRATE INJ/PF 250 MCG/5 ML AMPULE ONE (11:38)
[2019-05-07] MEDS ORDERED: MIDAZOLAM 2 MG/2 ML INJ ONE (11:38)
[2019-05-07] MEDS ORDERED: PROPOFOL INJ 200 MG/20 ML VIAL IV ONE (11:38)
--- NOTE | 2019-05-07 12:48 | Operative Report ---
Nonrecallable Operative Report DATE OF SURGERY: 05/07/19 PREOPERATIVE DIAGNOSIS: Cholelithiasis POSTOPERATIVE DIAGNOSIS: Cholelithiasis OPERATION: Laparoscopic cholecystectomy SURGEON: ELLIOTT SANCHEZ BILLBOARD ERECTOR HELPER: ALYSSA NEAL ANESTHESIA: GA TISSUE REMOVED OR ALTERED: Gallbladder COMPLICATIONS: None ESTIMATED BLOOD LOSS: 10 cc INTRAOPERATIVE FINDINGS: See dictation PROCEDURE: After obtaining informed consent, the patient was taken to the operating room. General Anesthesia was induced; the arms were extended, and the abdomen was exposed, and prepped and draped in a sterile fashion. Instrumentation was set up for laparoscopic cholecystectomy. Surgical plan and surgical timeout were conducted. A vertical incision was made above the umbilicus, and a verres needle was inserted uneventfully into the peritoneal cavity. Pneumoperitoneum was established. The verres needle was removed and a 10 mm trocar was inserted and a 10 mm flexible laparoscope was inserted. Visualization of the peritoneal cavity confirmed safe uneventful entry. Under direct visualization 3 additional 5 mm ports were established, one in the subxiphoid position and second in the subcostal position. Visualization of the hepatobiliary anatomy revealed no anatomic variations. A grasper was placed on the fundus of the gallbladder and the gallbladder is elevated over the right surface of the liver; a second grasper was used to grasp the infundibulum of the gallbladder. The neck of the gallbladder and junction with the cystic duct was dissected out. The Cystic artery was in its usual location medial and cephalad to the cystic duct. The cystic artery was surrounded with a right angle clamp, clipped twice proximally and divided with laparoscopic scissors. We now opened the triangle of Calot by dividing the peritoneal reflection on both the medial and lateral sides of the cystic duct infundibular junction. The critical view was obtained. We now milked the cystic duct of any possible stones, clipped the cystic duct approximately 2 times once distally and divided with scissors. The gallbladder was now removed from the undersurface of the liver using hook cautery dissection. Graspers were repositioned and the gallbladder was removed uneventfully from the abdominal cavity through the super umbilical port site incision. The specimen was examined, then passed off to pathology for permanent analysis. We returned to the peritoneal cavity check for bleeding, and evidence of bile leak, and there was none. We Confirmed satisfactory placement of clips on cystic duct and cystic artery were secured . At this point we felt the operation was complete. The subcutaneous tissue was then anesthetized with quarter percent Marcaine Sponge and needle counts are correct. All ports removed under direct visualization pneumoperitoneum evacuated, and 5 mm port wounds closed with 3-0 Vicryl suture, benzoin and Steri-Strips. The patient was extubated, and taken to the recovery room in stable condition.
[2019-05-07] MEDS ORDERED: OXYCODONE-ACETAMINOPHEN 5-325 MG TABLET PO PRN ×3 (12:50→13:33)
--- NOTE | 2019-05-07 12:50 | Discharge Summary ---
Discharge Summary (SDC) - Discharge Final Diagnosis: Cholelithiasis Date of Surgery: 05/07/19 Discharge Date: 05/07/19 Condition: Good Referrals: ELIE IYER MD [Primary Care Provider] - Discharge Diet: As Tolerated Discharge Activity: Activity As Tolerated, No Lifting Over 10 Pounds Report the Following to Your Physician Immediately: Shortness of Breath, Nausea, Vomiting, Increase in Pain, Yellow Skin - Follow-up appointment in 7 to 10 days in surgery clinic, Fever over 101 Degrees
[2019-05-07] MEDS ORDERED: DIPHENHYDRAMINE HCL 50 MG/ML VIAL ONE (12:59)
[2019-05-07] MEDS ORDERED: PROMETHAZINE HCL INJ 25 MG/1 ML VIAL ONE (12:59)
[2019-05-07] MEDS ORDERED: MEPERIDINE HCL/PF INJ 25 MG/1 ML DISP.SYRIN IV PRN (13:33)
[2019-05-07] MEDS ORDERED: FENTANYL CITRATE INJ/PF 100 MCG/2 ML AMPUL IV PRN ×3 (13:33)
[2019-05-07] MEDS ORDERED: DIPHENHYDRAMINE HCL 50 MG/ML VIAL IV PRN (13:33)
[2019-05-07] MEDS ORDERED: PROMETHAZINE HCL INJ 25 MG/1 ML VIAL IV PRN ×2 (13:33)
[2019-05-07] MEDS ORDERED: KETOROLAC TROMETHAMINE 60 MG/2 ML SDV ONE (15:02)
[2019-05-07] MEDS ORDERED: ONDANSETRON HCL INJ/PF 4 MG/2 ML SDV ONE (15:02)
[2019-05-07] MEDS ORDERED: NEOSTIGMINE METHYLSULFATE 10 MG/10 ML VIAL ONE (15:02)
[2019-05-07] MEDS ORDERED: ROCURONIUM BROMIDE INJ 50 MG/5 ML VIAL IV ONE (15:02)
[2019-05-07] MEDS ORDERED: GLYCOPYRROLATE 1 MG/5 ML VIAL ONE (15:02)
[2019-05-07] MEDS ORDERED: LIDOCAINE 2% INJ-PF (20 MG/ML) 2 ML AMPUL ONE (15:02)
[2019-05-07 15:40] VITALS: BP 106/69
== END 2019-05-07 15:10 | disposition home or self-care (01) ==
LOC: OROUT 08:17
PROVIDERS: ATTEND Surgery
DX: K80.20 Calculus of gallbladder without cholecystitis without obstruction (principal)
CPT/HCPCS: 86900; 86901; 36415; 86850; 82150; 85027; 81025; 80076; 80048; 88304 ×2; 00790; 47562; J2250; J3490 ×5; J0690; J1200; J1885; J3010; J2765; J2710; J2550; J2405; J2704; S0028; 790

== ENCOUNTER → 2019-10-09 | Outpatient (CLI) | payer OTHER ==
[2019-10-09 12:55] LABS: ALBUMIN 4.7 g/dL (3.5-5.0); ALKALINE PHOSPHATASE 81 U/L (38-126); ANION GAP 8 (5-19); ASPARTATE AMINO TRANSFERASE 24 U/L (14-36); BILIRUBIN,DIRECT 0.1 mg/dL (0.0-0.4); BILIRUBIN,TOTAL 0.4 mg/dL (0.2-1.3); BLOOD UREA NITROGEN 11 mg/dL (7-20); CALCIUM 10.5 mg/dL (8.4-10.2); CARBON DIOXIDE 28 mmol/L (22-30); CHLORIDE 105 mmol/L (98-107); GLUCOSE 88 mg/dL (75-110); POTASSIUM 4.8 mmol/L (3.6-5.0); TOTAL PROTEIN 7.8 g/dL (6.3-8.2); TRIGLYCERIDES 121 mg/dL (<150)
[2019-10-09 13:05] LABS: DIRECT LDL 124 mg/dL (<100)
== END ==
LOC: OD 11:49
PROVIDERS: ATTEND Family Medicine
DX: F34.1 Dysthymic disorder (principal); Z13.1 Encounter for screening for diabetes mellitus; Z13.220 Encounter for screening for lipoid disorders; L08.0 Pyoderma
CPT/HCPCS: 36415; 80053; 80061; 82627; 83036; 84146; 84403; 84443

== ENCOUNTER → 2020-06-13 | Outpatient (CLI) | payer BC ==
--- NOTE | 2020-06-13 14:37 | RADIOLOGY REPORT (SQ) ---
EXAM DESCRIPTION: FOOT LEFT COMPLETE IMAGES COMPLETED DATE/TIME: 06/13/2020 1:55 pm REASON FOR STUDY: S90.32XA CONTUSION OF LEFT FOOT, INITIAL ENCOUNTER S90.32XA CONTUSION OF LEFT DELFINO T, INITIAL ENCOUNTER COMPARISON: None. NUMBER OF VIEWS: Three views. TECHNIQUE: AP, lateral and oblique radiographic images acquired of the left foot. LIMITATIONS: None. FINDINGS: MINERALIZATION: Normal. BONES: No acute fracture or dislocation. No worrisome bone lesions. JOINTS: No effusions. SOFT TISSUES: No soft tissue swelling. No foreign body. OTHER: No other significant finding. IMPRESSION: NEGATIVE STUDY OF THE LEFT FOOT. NO RADIOGRAPHIC EVIDENCE OF ACUTE INJURY. TECHNICAL DOCUMENTATION: JOB ID: [id number] 2010 [employer]- All Rights Reserved Reading location - IP/workstation name: [email or web address]
== END ==
LOC: RAD 13:38
DX: S90.32XA Contusion of left foot, initial encounter (principal); X58.XXXA Exposure to other specified factors, initial encounter; Y93.9 Activity, unspecified; Y92.9 Unspecified place or not applicable

== ENCOUNTER 2020-09-12 00:16 | Emergency (ER) | payer BC ==
[2020-09-12 00:41] VITALS: BP 131/89
[2020-09-12] MEDS ORDERED: ACETAMINOPHEN 325 MG TABLET PO ONE (01:34)
[2020-09-12] MEDS ORDERED: POLYMYXIN B SULFATE/TMP OPH SOLN (10 ML/ER DISP) OS ONE (02:53)
--- NOTE | 2020-09-12 02:55 | ER Document Report ---
HPI - HPI Time Seen by Provider: 09/12/20 02:29 Pain Level: 4 Context: Patient is a 24-year-old female who presents to the emergency department with the chief complaint of left ear pain. Patient initially thought that her ear pain was from teeth pain, but saw her dentist and her dentist ended up putting her on some clindamycin. She was placed on clindamycin on September 05. Patient reports that she had a scab in her ear and ended up picking it. Patient states that she has not been on antibiotic eardrops. Denies any fever, body aches, or chills. States that she continues to have pain to the left ear and her hearing is a little muffled. - ROS Systems Reviewed and Negative: Yes All other systems reviewed and negative - CONSTITUTIONAL Constitutional: DENIES: Fever, Chills - EENT EENT: REPORTS: Ear Pain - Left - NEURO Neurology: DENIES: Headache, Weakness - RESPIRATORY Respiratory: DENIES: Trouble Breathing, Coughing - REPRODUCTIVE LMP: 09/01/20 Reproductive: DENIES: : - DERM Skin Color: Normal Skin Problems: None Past Medical History - Social History Smoking Status: Never Smoker Family History: Reviewed & Not Pertinent - Past Medical History Cardiac Medical History: Denies: Hx Coronary Artery Disease, Hx Heart Attack, Hx Hypertension Pulmonary Medical History: Denies: Hx Asthma, Hx Bronchitis, Hx COPD, Hx Pneumonia Neurological Medical History: Denies: Hx Cerebrovascular Accident, Hx Seizures Renal/ Medical History: Denies: Hx Peritoneal Dialysis Musculoskeletal Medical History: Denies Hx Arthritis Past Surgical History: Reports: Hx Oral Surgery - wisdom teeth, Hx Orthopedic Surgery - knee - Immunizations Hx Diphtheria, Pertussis, Tetanus Vaccination: Yes Vertical Provider Document - CONSTITUTIONAL Agree With Documented VS: Yes Exam Limitations: No Limitations General Appearance: No Apparent Distress - INFECTION CONTROL TRAVEL OUTSIDE OF THE [place] IN LAST 30 DAYS: No - HEENT HEENT: Atraumatic, Normocephalic, PERRLA. negative: Tympanic Membrane Red, Tympanic Membrane Bulging - Edema noted to left external auditory canal - NECK Neck: Normal Inspection - RESPIRATORY Respiratory: Breath Sounds Normal, No Respiratory Distress - CARDIOVASCULAR Cardiovascular: Regular Rate, Regular Rhythm - MUSCULOSKELETAL/EXTREMETIES Musculoskeletal/Extremeties: FROM - NEURO Level of Consciousness: Awake, Alert, Appropriate Motor/Sensory: No Motor Deficit, No Sensory Deficit - DERM Integumentary: Warm, Dry, No Rash Course - Re-evaluation Re-evalutation: 09/12/20 Patient's physical exam and history is consistent with otitis externa. Patient will be placed on antibiotic eardrops. I do not suspect patient has mastoiditis, as there is no pain at the mastoid process. There is pain at the tragus. Tympanic membrane is noninjected. No bulging noted. Follow-up precautions were given. Verbal discharge instructions were given to the patient. They verbalized understanding. They are stable for discharge. - Vital Signs Vital signs: Temp Pulse Resp BP Pulse Ox 98.4 F 91 16 131/89 H 99 09/12/20 00:40 09/12/20 00:40 09/12/20 00:40 09/12/20 00:40 09/12/20 00:40 - Laboratory Results Critical Laboratory Results Reviewed: No Critical Results - Radiology Results Critical Radiology Results Reviewed: No Critical Results Discharge - Discharge Clinical Impression: Otitis externa Qualifiers: Otitis externa type: unspecified type Chronicity: acute Laterality: left Qualified Code(s): H60.502 - Unspecified acute noninfective otitis externa, left ear Condition: Stable Disposition: HOME, SELF-CARE Additional Instructions: Otitis Externa You have otitis externa -- an infection of the outer ear canal. This can be very painful. It's sometimes called "swimmer's ear," because it often occurs after prolonged water exposure. Many things, such as earwax and dirt in the ear, can contribute to it. The usual treatment is antibiotic/antiinflammatory ear drops. Occasionally, a wick will be placed in the ear to draw in the medicine. If the infection is severe, an oral antibiotic may be prescribed. Pain medication is often needed. Avoid getting water in the ear. Outer ear infections often take longer to heal than you might expect. Some tenderness and ache in the ear may persist for about two weeks. See your physician if you fail to improve as expected. Call the doctor at once if you develop fever, increasing swelling (particularly if it makes your ear "poke out"), severe headache, stiff neck, or decreased hearing. Place 1 drop to your left ear 4 times a day for 7 days. If you are not any better after being on the antibiotic eardrops, please follow- up with ENT. Referrals: BAUTISTA BLAIR MD [COMMUNITY BASED STAFF] - Follow up as needed ABBY SERVIN DO [ASSOCIATE] - Follow up as needed
== END 2020-09-12 03:15 | disposition home or self-care (01) ==
LOC: ER 00:16
DX: H60.502 Unspecified acute noninfective otitis externa, left ear (principal); H92.02 Otalgia, left ear
CPT/HCPCS: 99283; J3490

== ENCOUNTER 2020-09-13 23:24 | Emergency (ER) | payer BC ==
--- NOTE | 2020-09-14 00:35 | ER Document Report ---
ED Medical Screen (RME) - General Chief Complaint: Facial Swelling Stated Complaint: EAR SWELLING/PAIN Time Seen by Provider: 09/14/20 00:27 Primary Care Provider: RAINER MEJIA PA [Primary Care Provider] - Follow up as needed Mode of Arrival: Ambulatory Information source: Patient Notes: 24-year-old female presents to ED for complaint of pain and swelling to the left ear face and neck. She states she came into the emergency room on Saturday and had a left otitis externa and was started on Polytrim. She states she called the doctor on demand on Saturday and she thought she needed a oral antibiotic to because she was started to have fevers of 100. She started the amoxicillin today. She states the ear has gotten more and more swollen and painful. She tried to call the ENT and she cannot get into see them till after the beginning of the year. She came to the emergency room because of the increase in swelling and pain. She does have a history of hypothyroid and takes Synthroid. Her last menstrual period was September 01. She denies smoking drinking or using any drugs. I have ordered blood and a CT soft tissue neck with IV contrast I have greeted and performed a rapid initial assessment of this patient. A comprehensive ED assessment and evaluation of the patient, analysis of test results and completion of medical decision making process will be conducted by an additional ED providers. TRAVEL OUTSIDE OF THE [place] IN LAST 30 DAYS: No - Related Data Allergies/Adverse Reactions: ciprofloxacin [From Ciprodex] Allergy (Verified 05/06/19 09:30) dexamethasone [From Ciprodex] Allergy (Verified 05/06/19 09:30) mushroom Allergy (Verified 05/07/19 09:20) adhesive tape Adverse Reaction (Verified 05/07/19 09:20) Past Medical History - Past Medical History Cardiac Medical History: Denies: Hx Coronary Artery Disease, Hx Heart Attack, Hx Hypertension Pulmonary Medical History: Denies: Hx Asthma, Hx Bronchitis, Hx COPD, Hx Pneumonia Neurological Medical History: Denies: Hx Cerebrovascular Accident, Hx Seizures Renal/ Medical History: Denies: Hx Peritoneal Dialysis Musculoskeltal Medical History: Denies Hx Arthritis Past Surgical History: Reports: Hx Oral Surgery - wisdom teeth, Hx Orthopedic Surgery - knee - Immunizations Hx Diphtheria, Pertussis, Tetanus Vaccination: Yes Physical Exam - Vital signs Vitals: Temp Pulse Resp BP Pulse Ox 98.0 F 100 16 110/71 98 09/13/20 23:32 09/13/20 23:32 09/13/20 23:32 09/13/20 23:32 09/13/20 23:32 Course - Vital Signs Vital signs: Temp Pulse Resp BP Pulse Ox 98.0 F 100 16 110/71 98 09/13/20 23:32 09/13/20 23:32 09/13/20 23:32 09/13/20 23:32 09/13/20 23:32 Doctor's Discharge - Discharge Referrals: RAINER MEJIA PA [Primary Care Provider] - Follow up as needed
[2020-09-14 02:44] LABS: ABSOLUTE EOSINOPHILS # (AUTO) 0.1 10^3/uL (0.0-0.6); ABSOLUTE LYMPHOCYTES (AUTO) 2.2 10^3/uL (0.5-4.7); ABSOLUTE MONOCYTES (AUTO) 1.3 10^3/uL (0.1-1.4); ABSOLUTE NEUT (AUTO) 8.7 10^3/uL (1.7-8.2); BASOPHILS % (AUTO) 0.4 % (0-2); EOSINOPHILS % (AUTO) 1.1 % (0-6); HEMATOCRIT 37.9 % (36.0-47.0); LYMPHOCYTES % (AUTO) 18.1 % (13-45); MEAN CORPUSCULAR HEMOGLOBIN 31.3 pg (27.0-33.4); MEAN CORPUSCULAR HGB CONC 34.4 g/dL (32.0-36.0); MEAN CORPUSCULAR VOLUME 91 fl (80-97); MONOCYTES % (AUTO) 10.2 % (3-13); PLATELET COUNT 309 10^3/uL (150-450); RED BLOOD COUNT 4.16 10^6/uL (3.72-5.28); RED CELL DISTRIBUTION WIDTH 12.5 % (11.5-14.0); SEGMENTED NEUTROPHILS % (AUTO) 70.2 % (42-78); TOTAL CELLS COUNTED % (AUTO) 100 %; WHITE BLOOD COUNT 12.4 10^3/uL (4.0-10.5)
[2020-09-14 03:01] LABS: ALBUMIN 4.4 g/dL (3.5-5.0); ALKALINE PHOSPHATASE 89 U/L (38-126); ANION GAP 11 (5-19); ASPARTATE AMINO TRANSFERASE 155 U/L (14-36); BILIRUBIN,DIRECT 0.3 mg/dL (0.0-0.4); BLOOD UREA NITROGEN 7 mg/dL (7-20); CALCIUM 9.6 mg/dL (8.4-10.2); CARBON DIOXIDE 26 mmol/L (22-30); CHLORIDE 105 mmol/L (98-107); GLUCOSE 102 mg/dL (75-110); POTASSIUM 4.5 mmol/L (3.6-5.0); TOTAL PROTEIN 7.4 g/dL (6.3-8.2)
[2020-09-14] MEDS ORDERED: PREDNISONE 20 MG TABLET PO ONE (04:49)
[2020-09-14] MEDS ORDERED: KETOROLAC TROMETHAMINE INJ/PF 30 MG/1 ML SDV IV ONE (04:49)
[2020-09-14] MEDS ORDERED: LIDOCAINE 2% JELLY 30 ML TUBE TOP ONE (04:50)
--- NOTE | 2020-09-14 04:52 | RADIOLOGY REPORT (SQ) ---
EXAM DESCRIPTION: CT NECK WITH IV CONTRAST COMPLETED DATE/TME: 09/14/2020 03:36 CLINICAL HISTORY: 24 years, Female, Pain swelling to the left side of face and neck COMPARISON: None. TECHNIQUE: 310 Images stored on PACS. All CT scanners at this facility use dose modulation, iterative reconstruction, and/or weight based dosing when appropriate to reduce radiation dose to as low as reasonably achievable (ALARA). [facility]: Dose Right [facility]: CareDose [facility]: Dose Right [facility]: Teradose 4D [facility]: [facility] LIMITATIONS: None. FINDINGS: Limited evaluation of brain parenchyma is unremarkable. The globes are intact. The paranasal sinuses and mastoid air cells are well aerated. The visualized parotid and submandibular glands are unremarkable. Limited evaluation of the lung apices is unremarkable. The epiglottis is normal. The airway is widely patent. The prevertebral soft tissues are normal. Scattered nonenlarged jugulodigastric chain lymph nodes. No cervical chain adenopathy. No abnormal gas or fluid collections. No discrete enhancing abnormality nonenlarged submental and submandibular chain lymph nodes are also noted bilaterally. IMPRESSION: Scattered nonenlarged lymph nodes. No enhancing abnormality or abnormal fluid collection TECHNICAL DOCUMENTATION: Quality ID # [id number]: Final reports with documentation of one or more dose reduction techniques (e.g., Automated exposure control, adjustment of the mA and/or kV according to patient size, use of iterative reconstruction technique) copyright 2011 [employer]- All Rights Reserved
[2020-09-14] MEDS ORDERED: LIDOCAINE 2% JELLY 5 ML TUBE ONE (05:21)
[2020-09-14] MEDS ORDERED: LIDOCAINE 1%/EPINEPHRINE INJ 20 ML VIAL INFIL ONE (05:22)
[2020-09-14] MEDS ORDERED: ACETAMINOPHEN WITH CODEINE #3 TABLET PO ONE (05:23)
[2020-09-14] MEDS ORDERED: LIDOCAINE 2% INJ (20 MG/ML) 20 ML MDV INFIL ONE (05:24)
--- NOTE | 2020-09-14 06:35 | ER Document Report ---
ED General - General Chief Complaint: Facial Swelling Stated Complaint: EAR SWELLING/PAIN Time Seen by Provider: 09/14/20 00:27 Primary Care Provider: RAINER MEJIA PA [Primary Care Provider] - Follow up as needed Mode of Arrival: Ambulatory Notes: 24-year-old female with hypothyroidism presents with worsening pain in left ear after being diagnosed with left acute otitis externa and being started on drops few days ago. Went to another doctor outside was started on amoxicillin and had about 1 dose prior to arrival but says pain was so bad that she was concerned so she came to the ED. Patient has been taking ibuprofen and Tylenol for pain which is partially controlled it. Patient endorses pain in rounds front of ear but no pain behind the ear and subjective fever. Past day. Patient denies any diabetes, HIV, immunocompromise history, prior episodes, neck pain or stiffness, shortness of breath. Patient is tolerating p.o., no vomiting. TRAVEL OUTSIDE OF THE [place] IN LAST 30 DAYS: No - Related Data Allergies/Adverse Reactions: ciprofloxacin [From Ciprodex] Allergy (Verified 05/06/19 09:30) dexamethasone [From Ciprodex] Allergy (Verified 05/06/19 09:30) mushroom Allergy (Verified 05/07/19 09:20) adhesive tape Adverse Reaction (Verified 05/07/19 09:20) Past Medical History - General Information source: Patient - Social History Smoking Status: Never Smoker Family History: Reviewed & Not Pertinent - Past Medical History Cardiac Medical History: Denies: Hx Coronary Artery Disease, Hx Heart Attack, Hx Hypertension Pulmonary Medical History: Denies: Hx Asthma, Hx Bronchitis, Hx COPD, Hx Pneumonia Neurological Medical History: Denies: Hx Cerebrovascular Accident, Hx Seizures Renal/ Medical History: Denies: Hx Peritoneal Dialysis Musculoskeletal Medical History: Denies Hx Arthritis Past Surgical History: Reports: Hx Cholecystectomy, Hx Oral Surgery - wisdom teeth, Hx Orthopedic Surgery - left knee - Immunizations Hx Diphtheria, Pertussis, Tetanus Vaccination: Yes Review of Systems - Review of Systems Notes: REVIEW OF SYSTEMS: CONSTITUTIONAL : + fever, chills, or sweats. EENT: Denies recent cold/sinus symptoms, denies throat pain CARDIOVASCULAR: Denies chest pain, JOAQUIN RESPIRATORY: Denies cough, denies shortness of breath. GASTROINTESTINAL: Denies abdominal pain, nausea/vomiting. GENITOURINARY: Denies difficulty urinating, painful urination. MUSCULOSKELETAL: Denies neck pain, back pain. SKIN: Denies rash or skin lesions. HEMATOLOGIC : Denies easy bruising or bleeding. LYMPHATIC: + swollen, enlarged glands. NEUROLOGICAL: Denies headache, denies change in gait. PSYCHIATRIC: Denies anxiety or stress or depression. Physical Exam - Vital signs Vitals: Temp Pulse Resp BP Pulse Ox 98.0 F 100 16 110/71 98 09/13/20 23:32 09/13/20 23:32 09/13/20 23:32 09/13/20 23:32 09/13/20 23:32 - Notes Notes: PHYSICAL EXAMINATION: GENERAL: Uncomfortable but nontoxic-appearing young adult female in no acute distress HEAD: Atraumatic, normocephalic EYES: Pupils equal round and appropriate constriction, sclera anicteric, conjunctiva are normal. ENT: nares patent, moist mucous membranes, mild swelling of soft tissue around front of left ear and posterior left cheek without any induration, copious left external auditory canal discharge with inability to see TM, normal oropharynx, mild trismus but able to range jaw, normal dentition, normal uvula, no tonsillar edema or exudates. No mastoid tenderness, normal ear positioning. NECK: Normal range of motion, supple without lymphadenopathy LUNGS: Breath sounds clear to auscultation bilaterally and equal. No stridor wheezes rales or rhonchi. HEART: Regular rate and rhythm without murmurs ABDOMEN: Soft, nontender, no guarding, no masses, no CVAT EXTREMITIES: Normal range of motion, no pitting or edema. No cyanosis. NEUROLOGICAL: Awake, alert, conversing appropriately, moves all extremities spontaneously. PSYCH: Normal mood, normal affect. SKIN: Warm, Dry Course - Re-evaluation Re-evalutation: 09/14/20 05:54 Worsening symptoms from acute otitis externa, no signs of mastoiditis or Jovan' s angina, no signs of sepsis, tolerating p.o., no signs of airway involvement or impending airway obstruction, symptoms likely worsening from inability of otic drops to penetrate copious discharge. I performed suction with NG tube after instilling lidocaine in the ear which patient tolerated well, able to see middle ear with normal TM, patient ready for discharge gave extensive return to ED precautions which she demonstrated understanding of. 09/14/20 07:00 Patient allergic to dexamethasone but not allergic to other steroids - Vital Signs Vital signs: Temp Pulse Resp BP Pulse Ox 99.1 F 92 18 109/63 100 09/14/20 05:29 09/14/20 05:29 09/14/20 05:29 09/14/20 05:29 09/14/20 05:29 - Laboratory Results Result Diagrams: 09/14/20 02:32 09/14/20 02:32 Laboratory Results Interpreted: 09/14/20 09/14/20 02:32 02:32 WBC 12.4 H Absolute Neuts (auto) 8.7 H AST 155 H ALT 223 H Critical Laboratory Results Reviewed: No Critical Results - Radiology Results Critical Radiology Results Reviewed: No Critical Results Procedures - Needle Aspiration Left Head Time Completed: 06:54 Type of Aspiration: Fine Note:: used lidocaine for anesthesia, then six [place] NG tube to suction to relieve impacted TM from otitis externa discharge, approximately 1 cc purulent discharge removed without complication which patient tolerated well Discharge - Discharge Clinical Impression: Acute otitis externa Qualifiers: Otitis externa type: other infective Laterality: left Qualified Code(s): H60.392 - Other infective otitis externa, left ear Disposition: HOME, SELF-CARE Additional Instructions: If you have worsening pain, spreading pain, confusion, headache, neck stiffness, inability to drink, shortness of breath, or any other worsening or alarming symptoms return to the emergency department immediately. Follow-up with primary doctor and ENT within 1 week. Prescriptions: Acetaminophen with Codeine [Tylenol #3 Tablet] 1 each PO Q4HP PRN #4 tablet PRN Reason: Severe Pain Neomycin/Polymyxin B/Hydrocort [Rpiykche-Easb-Xa Eye Drops] 4 drp OP QID 7 Days #1 drops.susp Referrals: TROY MCFARLAND MD [ACTIVE STAFF] - Follow up as needed
[2020-09-14 07:12] VITALS: BP 125/90
== END 2020-09-14 07:14 | disposition home or self-care (01) ==
LOC: ER 23:24
DX: H60.392 Other infective otitis externa, left ear (principal); H93.8X2 Other specified disorders of left ear; R50.9 Fever, unspecified; Z88.3 Allergy status to other anti-infective agents; Z90.49 Acquired absence of other specified parts of digestive tract
CPT/HCPCS: 99285; 96374; 36415; 84703; 85025; 80053; 70491; 10160; J3490; J1885; J7512